=== PATIENT | male | born 1980 | race Caucasian/White ===

== ENCOUNTER 2016-07-07 17:58 | Emergency (ER) | payer OTHER, SELFPAY ==
[2016-07-07 19:27] VITALS: BP 126/94
--- NOTE | 2016-07-07 19:52 | Emergency Department Report ---
Chief Complaint: Abdominal Pain Stated Complaint: STOMACH PAIN Time Seen by Provider: 07/07/16 19:47 - HPI History of Present Illness: Patient here complaining of stomach pain that started 1 hour prior to coming to the emergency room. He said is located around his umbilical area. He said similar pain in the past. Patient said he drinks 1 pint of vodka per day consistently for the last 1-2 weeks. He reports nausea but denies any vomiting denies any diarrhea. He said the took antacid but it didn't help. She reports some urine burning. Denies any fever or chills. - ROS Review of Systems: Systems are negative unless stated in HPI above. - Exam Vital Signs: Vital Signs 07/07/16 19:05 Temperature 98.1 F Pulse Rate 88 Respiratory 20 Rate Blood Pressure 126/94 O2 Sat by Pulse 96 Oximetry Physical Exam: General: This is a 35-year-old male well-nourished well-developed in no acute distress. Abdomen: Soft, tenderness to periumbilical area without any guarding or rebound tenderness. Normal bowel sounds. CV: S1, S2. Regular rate and rhythm. MSE screening note: Focused history and physical exam performed. Due to findings the following was ordered:see [facility] ED Medical Decision Making - Medical Decision Making Medical decision making: Patient seen by provider in triage area. Appropriate protocol activated and patient to main ED to be seen by physician. ED Disposition for MSE Condition: Stable
[2016-07-07 20:58] LABS: Basophils % (Auto) 0.2 % (0.0-1.8); Eosinophils % (Auto) 1.7 % (0.0-4.3); Hematocrit 51.6 % (35.5-45.6); Hemoglobin 17.2 gm/dl (11.8-15.2); Mean Corpuscular HGB Conc 33 % (32-34); Mean Corpuscular Hemoglobin 31 pg (28-32); Mean Corpuscular Volume 93 fl (84-94); Platelet Count 286 K/mm3 (140-440); Red Blood Count 5.54 M/mm3 (3.65-5.03)
[2016-07-07 21:21] LABS: Alanine Aminotransferase 44 units/L (7-56); Albumin/Globulin Ratio 1.4 %; Alkaline Phosphatase 74 units/L (35-129); Anion Gap 22 mmol/L; Bilirubin,Direct 0.2 mg/dL (0-0.2); Bilirubin,Indirect 0.5 mg/dL; Bilirubin,Total 0.7 mg/dL (0.1-1.2); Blood Urea Nitrogen 12 mg/dL (9-20); Calcium 9.5 mg/dL (8.4-10.2); Carbon Dioxide 26 mmol/L (22-30); Chloride 100.4 mmol/L (98-107); Glucose 127 mg/dL (75-100); Lipase 208 units/L (13-60); Potassium 3.9 mmol/L (3.6-5.0); Sodium 144 mmol/L (137-145); Total Protein 8.6 g/dL (6.3-8.2)
[2016-07-07 22:08] LABS: Bacteria,Urine 2+ /HPF (Negative); Bilirubin,Urine NEG (Negative); Blood,Urine NEG (Negative); Ketones,Urine NEG (Negative); Leukocyte Esterase,Urine NEG (Negative); Mucus,Urine 3+ /HPF; Nitrite,Urine NEG (Negative); Sperm,Urine FEW /HPF (NP); Urobilinogen,Urine < 2.0 mg/dL (<2.0)
[2016-07-08] MEDS ORDERED: ATIVAN ONE (19:14)
== END 2016-07-07 23:20 | disposition left against medical advice (07) ==
LOC: ED 17:58
DX: R10.33 Periumbilical pain (principal); R11.0 Nausea; R30.0 Dysuria; Z53.21 Procedure and treatment not carried out due to patient leaving prior to being seen by health care provider
CPT/HCPCS: 36415; 80048; 80074; 81001; 82150; 83690; 85025; 87086; J2060

== ENCOUNTER 2016-07-08 05:30 | Inpatient (IN) | payer SELFPAY ==
[2016-07-08 09:08] LABS: Basophils % (Auto) 0.2 % (0.0-1.8); Eosinophils % (Auto) 1.3 % (0.0-4.3); Hematocrit 46.9 % (35.5-45.6); Hemoglobin 15.7 gm/dl (11.8-15.2); Mean Corpuscular HGB Conc 33 % (32-34); Mean Corpuscular Hemoglobin 31 pg (28-32); Mean Corpuscular Volume 92 fl (84-94); Platelet Count 255 K/mm3 (140-440); Red Blood Count 5.09 M/mm3 (3.65-5.03); Red Cell Distribution Width 13.7 % (13.2-15.2); White Blood Count 11.3 K/mm3 (4.5-11.0)
[2016-07-08 09:16] LABS: Alanine Aminotransferase 42 units/L (7-56); Albumin 4.4 g/dL (3.9-5); Albumin/Globulin Ratio 1.5 %; Alkaline Phosphatase 66 units/L (35-129); Anion Gap 21 mmol/L; BUN/Creatinine Ratio 18.57; Bilirubin,Total 0.6 mg/dL (0.1-1.2); Blood Urea Nitrogen 13 mg/dL (9-20); Calcium 8.9 mg/dL (8.4-10.2); Carbon Dioxide 25 mmol/L (22-30); Glucose 108 mg/dL (75-100); Lipase 198 units/L (13-60); Sodium 142 mmol/L (137-145); Total Protein 7.4 g/dL (6.3-8.2)
[2016-07-08 12:20] LABS: Bilirubin,Urine NEG (Negative); Blood,Urine NEG (Negative); Ketones,Urine TR mg/dL (Negative); Leukocyte Esterase,Urine NEG (Negative); Mucus,Urine FEW /HPF; Nitrite,Urine NEG (Negative)
[2016-07-08] MEDS ORDERED: VITAMIN B-1 IV ONE (13:50)
[2016-07-08] MEDS ORDERED: NACL 0.9% 1000 ML IV ONE (13:50)
[2016-07-08] MEDS ORDERED: ZOFRAN IV ONE ×2 (13:50→15:45)
[2016-07-08] MEDS ORDERED: MORPHINE IV ONE ×2 (13:52→15:45)
[2016-07-08] MEDS ORDERED: VITAMIN B-1 100 MG in NACL 0.9% 50 ML IV ONE (15:00)
--- NOTE | 2016-07-08 15:30 | Emergency Department Report ---
HPI - General Chief Complaint: Abdominal Pain Time Seen by Provider: 07/08/16 13:12 - HPI HPI: Chief complaint: Abdominal pain nausea and vomiting HPI: Patient drinks a pint of vodka every night and has had 2 episodes of alcoholic pancreatitis and was admitted here complains of several days of upper abdominal pain without nausea vomiting or diarrhea. Patient states that he is been drinking alcohol in the waiting room to try and damp and down his pain. Patient denies that he has a problem of alcohol and that he is currently intoxicated. Mode of arrival: private car Source: Patient old chart Began: Several days Duration: Continuous Context: See above Quality: Pain Severity: 10 out of 10 Improved with: Nothing Worsened with: Nothing Associated signs and symptoms: Denies nausea vomiting or diarrhea but patient is an extremely poor historian secondary to drinking alcohol. ED Past Medical Hx - Past Medical History Hx Congestive Heart Failure: No Hx Diabetes: Yes Hx GERD: Yes Hx Psychiatric Treatment: Yes (BIPOLAR) Hx Asthma: No Hx COPD: No Hx HIV: No - Social History Smoking Status: Unknown if ever smoked Substance Use Type: Non Opiate Pain, Prescribed - Medications Home Medications: Home Medications Medication Instructions Recorded Confirmed Last Taken Type Esomeprazole Magnesium [NexIUM] 40 mg PO QDAY 03/20/16 07/08/16 Unknown History ED Review of Systems ROS: Stated complaint: ABD PAIN Other details as noted in HPI ROS Constitutional: No fever ENT: No uri symptoms Cardiovascular: No chest pain Respiratory: No sob or cough GI: No nausea vomiting or diarrhea : No dysuria frequency or urgency, Skin: No rash Neuro: No focal weakness or numbness Psych: Alcohol dependence Dorian/lymph: No edema Physical Exam - Physical Exam Vital Signs: Vital Signs 07/08/16 07/08/16 07/08/16 06:01 06:03 11:42 Temperature 97.4 F L 97.9 F Pulse Rate 105 H 93 H Respiratory 18 20 18 Rate Blood Pressure 133/94 Blood Pressure 133/96 [Left] O2 Sat by Pulse 97 97 100 Oximetry 07/08/16 11:45 Temperature 97.9 F Pulse Rate 91 H Respiratory 18 Rate Blood Pressure Blood Pressure 134/94 [Left] O2 Sat by Pulse 100 Oximetry Physical Exam: GENERAL: The patient is well-developed well-nourished . HEENT: Normocephalic. Atraumatic. Extraocular motions are intact. Patient has moist mucous membranes. NECK: Supple. No meningitic signs are noted. There is no adenopathy noted. CHEST/LUNGS: Clear to auscultation. There is no respiratory distress noted. HEART/CARDIOVASCULAR: Regular. There is no tachycardia. There is no gallop rub or murmur. ABDOMEN: Abdomen is soft, mild epigastric tenderness without rebound or guarding. Patient has normal bowel sounds. There is no abdominal distention. SKIN: There is no rash. There is no edema. There is no diaphoresis. NEURO: The patient is awake, alert, and oriented. The patient is cooperative. The patient has no focal neurologic deficits. The patient has normal speech. MUSCULOSKELETAL: There is no tenderness or deformity. There is no limitation range of motion. There is no evidence of acute injury. ED Course Vital Signs 07/08/16 07/08/16 07/08/16 06:01 06:03 11:42 Temperature 97.4 F L 97.9 F Pulse Rate 105 H 93 H Respiratory 18 20 18 Rate Blood Pressure 133/94 Blood Pressure 133/96 [Left] O2 Sat by Pulse 97 97 100 Oximetry 07/08/16 11:45 Temperature 97.9 F Pulse Rate 91 H Respiratory 18 Rate Blood Pressure Blood Pressure 134/94 [Left] O2 Sat by Pulse 100 Oximetry - Reevaluation(s) Reevaluation #1: 07/08/16 Patient given a liter of normal saline and 4 mg of morphine and 4 mg Zofran with persistent pain. Will be admitted to the hospitalist. ED Medical Decision Making - Lab Data Result diagrams: 07/08/16 08:42 07/08/16 08:42 Laboratory Tests 07/07/16 07/07/16 07/07/16 20:28 20:28 21:30 AST 52 H Amylase 147 H Lipase 208 H Ur Specific [place] 1.030 Urine Protein 100 mg/dl Urine Ketones Plasma/Serum Alcohol 07/08/16 07/08/16 07/08/16 08:42 12:03 13:49 AST 52 H Amylase Lipase 198 H Ur Specific [place] 1.030 Urine Protein 30 mg/dl Urine Ketones Tr Plasma/Serum Alcohol 0.12 H Critical care attestation.: If time is entered above; I have spent that time in minutes in the direct care of this critically ill patient, excluding procedure time. ED Disposition Clinical Impression: ETOH abuse Acute pancreatitis Qualifiers: Pancreatitis type: alcohol induced Acute pancreatitis complication: unspecified Qualified Code(s): K85.20 - Alcohol induced acute pancreatitis without necrosis or infection Disposition: OP ADMITTED IP TO THIS HOSP Is pt being admited?: Yes Does the pt Need Aspirin: No Condition: Fair Time of Disposition: 16:05 (admit to the hospitalist)
--- NOTE | 2016-07-08 16:49 | History and Physical Report ---
History of Present Illness Date of examination: 07/08/16 Date of admission: 07/08/16 Chief complaint: Abdominal pain for 2 days History of present illness: is a 35-year-old man who presented to the emergency room complaining of upper abdominal pain radiates into the back. Had some nausea but no vomiting. Has a history of alcohol abuse. He's also had pancreatitis in the past. His last drink was last night. He was seen in the emergency room and started on IV fluids and IV narcotics however his pain persisted. Past History Past Medical History: other (pancreatitis) Past Surgical History: Other (left forearm for laceration) Social history: smoking, alcohol abuse, full code. denies: IV drug use Family history: hypertension Medications and Allergies Allergies Allergy/AdvReac Type Severity Reaction Status Date / Time lamotrigine [From Lamictal] AdvReac Rash Verified 03/25/15 07:32 Home Medications Medication Instructions Recorded Confirmed Last Taken Type Esomeprazole Magnesium [NexIUM] 40 mg PO QDAY 03/20/16 07/08/16 Unknown History Review of Systems All systems: negative Constitutional: no weight loss, no weight gain, no fever, no anorexia, no fatigue, no weakness Ears, nose, mouth and throat: no ear pain, no ear discharge, no tinnitis Cardiovascular: no chest pain, no orthopnea, no palpitations, no rapid/ irregular heart beat Respiratory: no cough, no cough with sputum, no excessive sputum, no hemoptysis Gastrointestinal: other (as in the history of presenting complaint) Genitourinary Male: no urinary frequency Rectal: no pain, no incontinence Musculoskeletal: no neck stiffness, no neck pain, no shooting arm pain Integumentary: no rash, no pruritis, no redness Neurological: no transient paralysis, no paralysis, no weakness Psychiatric: no anxiety, no memory loss, no change in sleep habits Endocrine: no cold intolerance, no heat intolerance, no polyphagia, no excessive thirst Hematologic/Lymphatic: no easy bruising, no easy bleeding Allergic/Immunologic: no urticaria, no allergic rhinitis Exam - Constitutional Vitals: Temp Pulse Resp BP Pulse Ox 97.9 F 91 H 18 134/94 100 07/08/16 11:45 07/08/16 11:45 07/08/16 15:47 07/08/16 11:45 07/08/16 11:45 General appearance: Present: no acute distress, well-nourished - EENT Eyes: Present: PERRL, EOM intact. Absent: scleral icterus, conjunctival injection ENT: hearing intact, clear oral mucosa, no oropharyngeal erythema, no poor dentition - Neck Neck: Present: supple, normal ROM. Absent: enlarged thyroid, masses or JVD - Respiratory Respiratory effort: normal Respiratory: negative: diminished, rales, rhonchi, wheezing - Cardiovascular Rhythm: regular Heart Sounds: Present: S1 & S2. Absent: gallop - Extremities Extremities: no ischemia, pulses intact, pulses symmetrical, No edema Peripheral Pulses: within normal limits - Abdominal General gastrointestinal: Present: soft, tender (epigastrium), non-distended, normal bowel sounds Male genitourinary: Present: deferred - Rectal Rectal Exam: deferred - Integumentary Integumentary: Present: clear - Musculoskeletal Musculoskeletal: strength equal bilaterally - Psychiatric Psychiatric: appropriate mood/affect, intact judgment & insight, cooperative - Neurologic Neurologic: CNII-XII intact, moves all extremities Results - Labs CBC & Chem 7: 07/08/16 08:42 07/08/16 08:42 Labs: Abnormal lab results 07/08/16 07/08/16 07/08/16 Range/Units 08:42 08:42 13:49 WBC 11.3 H (4.5-11.0) K/mm3 RBC 5.09 H (3.65-5.03) M/mm3 Hgb 15.7 H (11.8-15.2) gm/dl Hct 46.9 H (35.5-45.6) % [place] % (Auto) 8.0 H (0.0-7.3) % [place] # 0.9 H (0.0-0.8) K/mm3 Seg Neutrophils % 70.3 H (40.0-70.0) % Seg Neutrophils # 8.0 H (1.8-7.7) K/mm3 Creatinine 0.7 L (0.8-1.5) mg/dL Glucose 108 H (75-100) mg/dL AST 52 H (5-40) units/L Lipase 198 H (13-60) units/L Plasma/Serum Alcohol 0.12 H (0-0.07) gm% Assessment and Plan 1. Acute alcoholic pancreatitis-admit as an inpatient as more than 2 midnights are required for treatment. Will keep patient nothing by mouth except for ice chips. We'll start patient on banana bag. Monitor Accu-Cheks. Monitor lipase. IV morphine for pain 2. Alcohol abuse-CIWA protocol 3. Nicotine abuse-looking cessation counseling done, including the harmful effects of cigarette smoking and the options available to help to quit. Nicotine patch. 10 minutes spent counseling 4. DVT prophylaxis-Lovenox
[2016-07-08] MEDS ORDERED: TYLENOL PO PRN (17:25)
[2016-07-08] MEDS ORDERED: REGLAN IV PRN (17:25)
[2016-07-08] MEDS ORDERED: ZOFRAN IV PRN (17:25)
[2016-07-08 18:01] LABS: Magnesium 1.8 mg/dL (1.7-2.3); Phosphorous 3.2 mg/dL (2.5-4.5)
[2016-07-08] MEDS: ATIVAN IV PRN (19:13)
[2016-07-08] MEDS: 1: FOLVITE 1 MG, INFUVITE 10 ML, VITAMIN B-1 100 MG in NACL 0.9% 1000 ML 988.8 ML 2: NA IV SCH (21:38)
[2016-07-08] MEDS: PROTONIX IV SCH (21:54)
[2016-07-08] MEDS: HABITROL TD SCH (21:54)
[2016-07-08] MEDS ORDERED: NACL 0.9% 1000 ML 1,000 ML ONE (21:55)
--- NOTE | 2016-07-08 22:31 | Admit Criteria Form ---
Admission Criteria Documentation: PANCREATITIS Clinical Indications for Admission to Inpatient Care (Place 'X' for any and all applicable criteria): Admission is indicated for ANY ONE of the following (1)(2)(3)(4): [ ]I. Acute pancreatitis[A] as indicated by 2 or more of the following: [ ]a) Abdominal pain (eg, epigastric, left upper quadrant) [ ]b) Serum amylase or serum lipase greater than 3 times the upper limit of normal [ ]c) Characteristic findings from abdominal imaging (eg, pancreatic inflammation, pancreatic necrosis, peripancreatic fluid collection)[B] [X ]II. Pancreatitis (acute or chronic) requiring inpatient care as indicated by 1 or more of the following: [ X]a) Inability to maintain oral hydration Hypoxemia [ ]b) Evidence of infection (eg, fever, peripancreatic abscess) [X ]c) Severe pain requiring acute inpatient management [ ]d) Hemodynamic instability [ ]e) Hypoxemia [ ]f) Acute renal failure [ ]g) Severe electrolyte abnormalities Extended stay beyond goal length of stay may be needed for (1)(11) [ ]a) Severe acute pancreatitis (10)(19) [ ]b) Persistent symptoms, ascites, or pleural effusion [ ]c) Abdominal compartment syndrome (10) [ ]d) Late complications [ ]e) Acute renal failure (27) [ ]f) Gallstones in gallbladder The original [employer] content created by [employer] has been revised. The portions of the content which have been revised are identified through the use of italic text or in bold,and [facility] has neither reviewed nor approved the modified material.All other unmodified content is copyright [employer]. Please see references footnoted in the original [employer] edition 2016 Admission Criteria Met: Yes
[2016-07-09] MEDS: MORPHINE IV PRN ×5 (02:29→20:09)
[2016-07-09] MEDS: 1: FOLVITE 1 MG, INFUVITE 10 ML, VITAMIN B-1 100 MG in NACL 0.9% 1000 ML 988.8 ML 2: NA IV SCH (02:34)
[2016-07-09] MEDS: ATIVAN IV PRN ×5 (02:52→20:08)
[2016-07-09 09:10] LABS: Anion Gap 19 mmol/L; BUN/Creatinine Ratio 18.33; Blood Urea Nitrogen 11 mg/dL (9-20); Calcium 8.5 mg/dL (8.4-10.2); Carbon Dioxide 23 mmol/L (22-30); Chloride 97.2 mmol/L (98-107); Glucose 114 mg/dL (75-100); Potassium 3.3 mmol/L (3.6-5.0); Sodium 136 mmol/L (137-145)
[2016-07-09] MEDS: LOVENOX SUB-Q SCH (10:35)
[2016-07-09] MEDS: HABITROL TD SCH (10:35)
[2016-07-09] MEDS: PROTONIX IV SCH ×2 (10:35→22:00)
[2016-07-09] MEDS: KCL 10MEQ/100ML 100 ML IV SCH ×2 (11:30→12:33)
[2016-07-09] MEDS ORDERED: NACL 0.9% 1000 ML 1,000 ML IV SCH (13:00)
--- NOTE | 2016-07-09 15:40 | Progress Note ---
Assessment and Plan Assessment and plan: Acute alcoholi pancreatitis. Keep nothing by mouth. Continue IV fluids. Morphine when necessary for pain management. Alcohol abuse. Started on CIWA protocol. I discussed with him the importance of quitting alcohol. DVT prophylaxis with Heparin. Full CODE STATUS History Interval history: abdominal pain, Last drink - vodka about 18 hrs ago Hospitalist Physical - Physical exam Narrative exam: Gen appearance : Not in acute distress, HEENT: Normocephalic atraumatic Neck: supple, no JVD. Lungs: clear to auscultation bilaterally, no crackles no wheezes Heart: S1 and S2 regular, no murmurs, rubs or gallop Abdomen: soft, tender epigastric and paraumbilical areas,, nondistended normal bowel sounds Extremities: No edema, no clubbing or cyanosis Neuro : Awake alert oriented 3, no focal signs - Constitutional Vitals: Temp Pulse Resp BP Pulse Ox 98.2 F 79 18 143/86 99 07/09/16 08:00 07/09/16 08:00 07/09/16 08:00 07/09/16 08:00 07/09/16 08:00 General appearance: Present: no acute distress, well-nourished Results - Labs CBC & Chem 7: 07/08/16 08:42 07/09/16 07:49 Labs: Laboratory Last Values WBC 11.3 K/mm3 (4.5-11.0) H 07/08/16 08:42 RBC 5.09 M/mm3 (3.65-5.03) H 07/08/16 08:42 Hgb 15.7 gm/dl (11.8-15.2) H 07/08/16 08:42 Hct 46.9 % (35.5-45.6) H 07/08/16 08:42 MCV 92 fl (84-94) 07/08/16 08:42 MCH 31 pg (28-32) 07/08/16 08:42 MCHC 33 % (32-34) 07/08/16 08:42 RDW 13.7 % (13.2-15.2) 07/08/16 08:42 Plt Count 255 K/mm3 (140-440) 07/08/16 08:42 Lymph % (Auto) 20.2 % (13.4-35.0) 07/08/16 08:42 [place] % (Auto) 8.0 % (0.0-7.3) H 07/08/16 08:42 Eos % (Auto) 1.3 % (0.0-4.3) 07/08/16 08:42 Baso % (Auto) 0.2 % (0.0-1.8) 07/08/16 08:42 Lymph # 2.3 K/mm3 (1.2-5.4) 07/08/16 08:42 [place] # 0.9 K/mm3 (0.0-0.8) H 07/08/16 08:42 Eos # 0.2 K/mm3 (0.0-0.4) 07/08/16 08:42 Baso # 0.0 K/mm3 (0.0-0.1) 07/08/16 08:42 Seg Neutrophils % 70.3 % (40.0-70.0) H 07/08/16 08:42 Seg Neutrophils # 8.0 K/mm3 (1.8-7.7) H 07/08/16 08:42 Sodium 136 mmol/L (137-145) L 07/09/16 07:49 Potassium 3.3 mmol/L (3.6-5.0) L 07/09/16 07:49 Chloride 97.2 mmol/L (98-107) L 07/09/16 07:49 Carbon Dioxide 23 mmol/L (22-30) 07/09/16 07:49 Anion Gap 19 mmol/L 07/09/16 07:49 BUN 11 mg/dL (9-20) 07/09/16 07:49 Creatinine 0.6 mg/dL (0.8-1.5) L 07/09/16 07:49 Estimated GFR > 60 ml/min 07/09/16 07:49 BUN/Creatinine Ratio 18.33 % 07/09/16 07:49 Glucose 114 mg/dL (75-100) H 07/09/16 07:49 POC Glucose 97 (70-105) 07/09/16 12:30 Calcium 8.5 mg/dL (8.4-10.2) 07/09/16 07:49 Phosphorus 3.2 mg/dL (2.5-4.5) 07/08/16 17:32 Magnesium 1.8 mg/dL (1.7-2.3) 07/08/16 17:32 Total Bilirubin 0.6 mg/dL (0.1-1.2) 07/08/16 08:42 AST 52 units/L (5-40) H 07/08/16 08:42 ALT 42 units/L (7-56) 07/08/16 08:42 Alkaline Phosphatase 66 units/L (35-129) 07/08/16 08:42 Total Protein 7.4 g/dL (6.3-8.2) 07/08/16 08:42 Albumin 4.4 g/dL (3.9-5) 07/08/16 08:42 Albumin/Globulin Ratio 1.5 % 07/08/16 08:42 Lipase 1155 units/L (13-60) H 07/09/16 07:49 Urine Color Yellow (Yellow) 07/08/16 12:03 Urine Turbidity Clear (Clear) 07/08/16 12:03 Urine pH 6.0 (5.0-7.0) 07/08/16 12:03 Ur Specific [place] 1.030 (1.003-1.030) 07/08/16 12:03 Urine Protein 30 mg/dl mg/dL (Negative) 07/08/16 12:03 Urine Glucose (UA) Neg mg/dL (Negative) 07/08/16 12:03 Urine Ketones Tr mg/dL (Negative) 07/08/16 12:03 Urine Blood Neg (Negative) 07/08/16 12:03 Urine Nitrite Neg (Negative) 07/08/16 12:03 Urine Bilirubin Neg (Negative) 07/08/16 12:03 Urine Urobilinogen 2.0 mg/dL (<2.0) 07/08/16 12:03 Ur Leukocyte Esterase Neg (Negative) 07/08/16 12:03 Urine WBC (Auto) 1.0 /HPF (0.0-6.0) 07/08/16 12:03 Urine RBC (Auto) 1.0 /HPF (0.0-6.0) 07/08/16 12:03 Urine Mucus Few /HPF 07/08/16 12:03 Plasma/Serum Alcohol 0.12 gm% (0-0.07) H 07/08/16 13:49
[2016-07-09] MEDS: KCL 10 MEQ in D5NS 1,000 ML IV SCH (18:52)
[2016-07-10] MEDS: MORPHINE IV PRN ×4 (00:19→20:55)
[2016-07-10] MEDS: VITAMIN B-1 100 MG, FOLVITE 1 MG, INFUVITE 10 ML in NACL 0.9% 1000 ML 1,000 ML IV SCH ×2 (05:30→23:22)
[2016-07-10 07:38] LABS: Hematocrit 47.2 % (35.5-45.6); Mean Corpuscular HGB Conc 34 % (32-34); Mean Corpuscular Hemoglobin 31 pg (28-32); Mean Corpuscular Volume 92 fl (84-94); Platelet Count 194 K/mm3 (140-440); Red Blood Count 5.15 M/mm3 (3.65-5.03); Red Cell Distribution Width 13.5 % (13.2-15.2); White Blood Count 13.2 K/mm3 (4.5-11.0)
[2016-07-10 07:52] LABS: Anion Gap 16 mmol/L; Blood Urea Nitrogen 9 mg/dL (9-20); Calcium 8.3 mg/dL (8.4-10.2); Carbon Dioxide 25 mmol/L (22-30); Chloride 99.5 mmol/L (98-107); Glucose 109 mg/dL (75-100); Potassium 3.6 mmol/L (3.6-5.0); Sodium 137 mmol/L (137-145)
[2016-07-10 08:02] LABS: Lipase 620 units/L (13-60)
[2016-07-10] MEDS: ATIVAN IV PRN (11:30)
[2016-07-10] MEDS: PROTONIX IV SCH ×2 (11:30→22:41)
[2016-07-10] MEDS: LOVENOX SUB-Q SCH (11:35)
--- NOTE | 2016-07-10 12:14 | Progress Note ---
Assessment and Plan Assessment and plan: Acute alcoholi pancreatitis. Less abdominal pain. Lipase level improving. Was NPO. Start clear liquid diet. Continue IV fluids. Morphine when necessary for pain management. Alcohol abuse. Started on CIWA protocol. I discussed with him the importance of quitting alcohol. DVT prophylaxis with Heparin. Full CODE STATUS History Interval history: Less abdominal pain, nausea, no vomiting Last drink - vodka 2 days ago. Hospitalist Physical - Physical exam Narrative exam: Gen appearance : Not in acute distress, HEENT: Normocephalic atraumatic Neck: supple, no JVD. Lungs: clear to auscultation bilaterally, no crackles no wheezes Heart: S1 and S2 regular, no murmurs, rubs or gallop Abdomen: soft, tender epigastric and paraumbilical areas,, nondistended ,normal bowel sounds Extremities: No edema, no clubbing or cyanosis Neuro : Awake alert oriented 3, no focal signs - Constitutional Vitals: Temp Pulse Resp BP Pulse Ox 99.2 F 106 H 18 132/96 94 07/10/16 08:00 07/10/16 08:00 07/10/16 08:00 07/10/16 08:00 07/10/16 08:00 General appearance: Present: no acute distress, well-nourished Results - Labs CBC & Chem 7: 07/10/16 06:39 07/10/16 06:39 Labs: Laboratory Last Values WBC 13.2 K/mm3 (4.5-11.0) H 07/10/16 06:39 RBC 5.15 M/mm3 (3.65-5.03) H 07/10/16 06:39 Hgb 16.0 gm/dl (11.8-15.2) H 07/10/16 06:39 Hct 47.2 % (35.5-45.6) H 07/10/16 06:39 MCV 92 fl (84-94) 07/10/16 06:39 MCH 31 pg (28-32) 07/10/16 06:39 MCHC 34 % (32-34) 07/10/16 06:39 RDW 13.5 % (13.2-15.2) 07/10/16 06:39 Plt Count 194 K/mm3 (140-440) 07/10/16 06:39 Lymph % (Auto) 20.2 % (13.4-35.0) 07/08/16 08:42 [place] % (Auto) 8.0 % (0.0-7.3) H 07/08/16 08:42 Eos % (Auto) 1.3 % (0.0-4.3) 07/08/16 08:42 Baso % (Auto) 0.2 % (0.0-1.8) 07/08/16 08:42 Lymph # 2.3 K/mm3 (1.2-5.4) 07/08/16 08:42 [place] # 0.9 K/mm3 (0.0-0.8) H 07/08/16 08:42 Eos # 0.2 K/mm3 (0.0-0.4) 07/08/16 08:42 Baso # 0.0 K/mm3 (0.0-0.1) 07/08/16 08:42 Seg Neutrophils % 70.3 % (40.0-70.0) H 07/08/16 08:42 Seg Neutrophils # 8.0 K/mm3 (1.8-7.7) H 07/08/16 08:42 Sodium 137 mmol/L (137-145) 07/10/16 06:39 Potassium 3.3 mmol/L (3.6-5.0) L 07/09/16 07:49 Chloride 97.2 mmol/L (98-107) L 07/09/16 07:49 Carbon Dioxide 25 mmol/L (22-30) 07/10/16 06:39 Anion Gap 19 mmol/L 07/09/16 07:49 BUN 9 mg/dL (9-20) 07/10/16 06:39 Creatinine 0.6 mg/dL (0.8-1.5) L 07/10/16 06:39 Estimated GFR > 60 ml/min 07/10/16 06:39 BUN/Creatinine Ratio 15.00 % 07/10/16 06:39 Glucose 109 mg/dL (75-100) H 07/10/16 06:39 POC Glucose 113 (70-105) H 07/10/16 05:51 Calcium 8.3 mg/dL (8.4-10.2) L 07/10/16 06:39 Phosphorus 3.2 mg/dL (2.5-4.5) 07/08/16 17:32 Magnesium 1.8 mg/dL (1.7-2.3) 07/08/16 17:32 Total Bilirubin 0.6 mg/dL (0.1-1.2) 07/08/16 08:42 AST 52 units/L (5-40) H 07/08/16 08:42 ALT 42 units/L (7-56) 07/08/16 08:42 Alkaline Phosphatase 66 units/L (35-129) 07/08/16 08:42 Total Protein 7.4 g/dL (6.3-8.2) 07/08/16 08:42 Albumin 4.4 g/dL (3.9-5) 07/08/16 08:42 Albumin/Globulin Ratio 1.5 % 07/08/16 08:42 Lipase 620 units/L (13-60) H 07/10/16 06:39 Urine Color Yellow (Yellow) 07/08/16 12:03 Urine Turbidity Clear (Clear) 07/08/16 12:03 Urine pH 6.0 (5.0-7.0) 07/08/16 12:03 Ur Specific [place] 1.030 (1.003-1.030) 07/08/16 12:03 Urine Protein 30 mg/dl mg/dL (Negative) 07/08/16 12:03 Urine Glucose (UA) Neg mg/dL (Negative) 07/08/16 12:03 Urine Ketones Tr mg/dL (Negative) 07/08/16 12:03 Urine Blood Neg (Negative) 07/08/16 12:03 Urine Nitrite Neg (Negative) 07/08/16 12:03 Urine Bilirubin Neg (Negative) 07/08/16 12:03 Urine Urobilinogen 2.0 mg/dL (<2.0) 07/08/16 12:03 Ur Leukocyte Esterase Neg (Negative) 07/08/16 12:03 Urine WBC (Auto) 1.0 /HPF (0.0-6.0) 07/08/16 12:03 Urine RBC (Auto) 1.0 /HPF (0.0-6.0) 07/08/16 12:03 Urine Mucus Few /HPF 07/08/16 12:03 Plasma/Serum Alcohol 0.12 gm% (0-0.07) H 07/08/16 13:49
[2016-07-10] MEDS: HABITROL TD SCH (13:07)
[2016-07-10] MEDS: KCL 10 MEQ in D5NS 1,000 ML IV SCH (14:49)
[2016-07-11] MEDS: MORPHINE IV PRN ×3 (03:57→13:29)
[2016-07-11] MEDS: HABITROL TD SCH (08:59)
[2016-07-11] MEDS: LOVENOX SUB-Q SCH (08:59)
[2016-07-11] MEDS: PROTONIX IV SCH (09:00)
[2016-07-11] MEDS: KCL 10 MEQ in D5NS 1,000 ML IV SCH (09:01)
[2016-07-11 10:18] LABS: Hematocrit 41.3 % (35.5-45.6); Hemoglobin 13.8 gm/dl (11.8-15.2); Mean Corpuscular HGB Conc 33 % (32-34); Mean Corpuscular Hemoglobin 31 pg (28-32); Mean Corpuscular Volume 94 fl (84-94); Platelet Count 194 K/mm3 (140-440); Red Cell Distribution Width 13.9 % (13.2-15.2); White Blood Count 9.8 K/mm3 (4.5-11.0)
[2016-07-11 10:22] LABS: Anion Gap 16 mmol/L; Blood Urea Nitrogen 7 mg/dL (9-20); Calcium 8.3 mg/dL (8.4-10.2); Carbon Dioxide 24 mmol/L (22-30); Chloride 101.1 mmol/L (98-107); Glucose 103 mg/dL (75-100); Lipase 227 units/L (13-60); Potassium 3.5 mmol/L (3.6-5.0); Sodium 138 mmol/L (137-145)
--- NOTE | 2016-07-11 10:26 | Discharge Summary ---
Providers - Providers Date of Admission: 07/08/16 16:35 Date of discharge: 07/11/16 Attending physician: PRETTY FAUSTIN Primary care physician: IT DESKTOP SUPPORT TECHNICIAN Hospitalization Condition: Fair Hospital course: Patient is 35-year-old with history of alcohol abuse, previous pancreatitis. He presents with abdominal pain, nausea, vomiting. The Lipase level was elevated at 198. He was diagnosed with acute alcoholic pancreatitis, was started on IV fluids, IV narcotics and admitted for further management. He was initially nothing by mouth, pain improved and he was started on clear liquid diet this was advanced. He continued to improve and was subsequently discharged home on 07/11/2016. He was advised to avoid alcohol. Total time spent on discharge 33 minutes Disposition: DISCHARGED TO HOME OR SELFCARE - Discharge Diagnoses (1) Acute alcoholic pancreatitis Status: Acute Qualifiers: Acute pancreatitis complication: A (2) Alcohol abuse Status: Chronic Core Measure Documentation - Palliative Care Palliative Care/ Comfort Measures: Not Applicable - Core Measures Any of the following diagnoses?: none Exam - Constitutional Vitals: Temp Pulse Resp BP Pulse Ox 97.8 F 97 H 18 108/60 95 07/11/16 08:00 07/11/16 08:00 07/11/16 08:00 07/11/16 08:00 07/11/16 08:00 Plan Activity: no restrictions Diet: low fat, low cholesterol, other (Soft, low fat) Additional Instructions: 1.Follow up with PCP or [facility] in 1 week. 2.Avoid alcohol Follow up with: [facility] [Outside] - 7 Days PRIMARY CARE,MD [Primary Care Provider] - 3-5 Days Prescriptions: Folic Acid [Folvite] 1 mg PO DAILY #30 tablet Multivitamin Tab [Multiple Vitamin TAB (Theragran)] 1 each PO DAILY #30 tablet Promethazine [Phenergan TAB] 25 mg PO Q6HR PRN #20 tab PRN Reason: Nausea Thiamine [Vitamin B-1] 100 mg PO QDAY #30 tablet oxyCODONE /ACETAMINOPHEN [Percocet 5/325] 1 tab PO Q6HR PRN #20 tablet PRN Reason: Pain
[2016-07-11 17:33] VITALS: BP 126/74
[2016-07-12] MEDS ORDERED: FOLVITE PO SCH (10:00)
[2016-07-12] MEDS ORDERED: THERAGRAN Tab PO SCH (10:00)
[2016-07-12] MEDS ORDERED: PROTONIX PO SCH (10:00)
[2016-07-12] MEDS ORDERED: VITAMIN B-1 PO SCH (10:00)
== END 2016-07-11 19:30 | disposition home or self-care (01) | DRG 440 ==
LOC: ED 05:30 → 3A 16:35
PROVIDERS: ADMIT Hospitalist; ATTEND Internal Medicine
DX: K85.20 Alcohol induced acute pancreatitis without necrosis or infection (principal); F10.10 Alcohol abuse, uncomplicated; F17.210 Nicotine dependence, cigarettes, uncomplicated; K21.9 Gastro-esophageal reflux disease without esophagitis; E11.9 Type 2 diabetes mellitus without complications; Z88.8 Allergy status to other drugs, medicaments and biological substances; Z82.49 Family history of ischemic heart disease and other diseases of the circulatory system
CPT/HCPCS: 36415; 80048; 80053; 80320; 81001; 82962; 83690; 83735; 84100; 85025; 85027; 96374; 96375; 96376; 99406; C9113; G0480; J1650; J2060; J2270; J2405; J2765; J3411; J3480; J7030; J7042

== ENCOUNTER 2016-07-15 00:16 | Emergency (ER) | payer SELFPAY ==
[2016-07-15] MEDS ORDERED: NACL 0.9% 1000 ML 1,000 ML IV ONE (00:58)
[2016-07-15 01:51] LABS: Hematocrit 44.5 % (35.5-45.6); Hemoglobin 14.7 gm/dl (11.8-15.2); Mean Corpuscular HGB Conc 33 % (32-34); Mean Corpuscular Hemoglobin 31 pg (28-32); Mean Corpuscular Volume 95 fl (84-94); Platelet Count 343 K/mm3 (140-440); Red Blood Count 4.71 M/mm3 (3.65-5.03); Red Cell Distribution Width 14.6 % (13.2-15.2); White Blood Count 5.5 K/mm3 (4.5-11.0)
[2016-07-15 01:58] LABS: INR 0.97 (0.87-1.13)
[2016-07-15 01:59] LABS: Partial Thromboplastin Time 28.9 Sec. (24.2-36.6)
[2016-07-15 02:10] LABS: Alanine Aminotransferase 52 units/L (7-56); Albumin 4.3 g/dL (3.9-5); Albumin/Globulin Ratio 1.2 %; Alkaline Phosphatase 88 units/L (35-129); Bilirubin,Total 0.2 mg/dL (0.1-1.2); Blood Urea Nitrogen 9 mg/dL (9-20); Calcium 9.9 mg/dL (8.4-10.2); Carbon Dioxide 28 mmol/L (22-30); Chloride 100.1 mmol/L (98-107); Glucose 111 mg/dL (75-100); Lipase 287 units/L (13-60); Sodium 141 mmol/L (137-145); Total Protein 7.8 g/dL (6.3-8.2)
[2016-07-15 02:16] LABS: Anion Gap 18 mmol/L
[2016-07-15 05:59] LABS: Anisocytosis 1+; Basophils % (Manual) 0 % (0.0-1.8); Blastocytes % (Manual) 0 %
[2016-07-15 06:00] LABS: Diff Status Complete; Hypochromasia 1+
[2016-07-15 06:01] LABS: Platelet Estimate Consistent w Auto
--- NOTE | 2016-07-15 10:33 | Emergency Department Report ---
ED GI Bleed HPI - General Chief complaint: GI Bleed Stated complaint: ABD PAIN Time Seen by Provider: 07/15/16 09:57 Source: patient Mode of arrival: Ambulatory Limitations: No Limitations - History of Present Illness Initial comments: 35-year-old male presents to emergency department complaining of abdominal pain and blood in his stools. Patient was recently admitted and discharged from this facility for acute pancreatitis. He reports his pain has been present off approximate 4 days. He states he was discharged 2 days ago. Pain is improved since discharge and is continuing to improve. At this time he reports just mild discomfort. Patient states yesterday he began having dark stools. Patient reports 2 episodes of this, but his last bowel movement was normal. There are no other complaints. MD complaint: melena -: Gradual, days(s) (4) Location: epigastric Radiation: none Quality: dull Consistency: constant Improves with: medication Worsens with: none Context: alcohol abuse Associated Symptoms: denies other symptoms - Related Data Home Medications Medication Instructions Recorded Confirmed Last Taken Esomeprazole Magnesium [NexIUM] 40 mg PO QDAY 03/20/16 07/08/16 Unknown Previous Rx's Medication Instructions Recorded Last Taken Type Folic Acid [Folvite] 1 mg PO DAILY #30 tablet 07/11/16 Unknown Rx Multivitamin Tab [Multiple Vitamin 1 each PO DAILY #30 tablet 07/11/16 Unknown Rx TAB (Theragran)] Promethazine [Phenergan TAB] 25 mg PO Q6HR PRN #20 tab 07/11/16 Unknown Rx Thiamine [Vitamin B-1] 100 mg PO QDAY #30 tablet 07/11/16 Unknown Rx oxyCODONE /ACETAMINOPHEN [Percocet 1 tab PO Q6HR PRN #20 tablet 07/11/16 Unknown Rx 5/325] HYDROcodone/APAP 5-325 [Cowen 1 each PO Q6HR PRN #20 tablet 07/15/16 Unknown Rx 5/325] Sucralfate [Carafate] 1 gm PO Q6HR #30 tablet 07/15/16 Unknown Rx Allergies Allergy/AdvReac Type Severity Reaction Status Date / Time lamotrigine [From Lamictal] AdvReac Rash Verified 03/25/15 07:32 ED Review of Systems ROS: Stated complaint: ABD PAIN Other details as noted in HPI Comment: All other systems reviewed and negative Gastrointestinal: abdominal pain, melena ED Past Medical Hx - Past Medical History Previous Medical History?: Yes Hx Congestive Heart Failure: No Hx Diabetes: Yes Hx GERD: Yes Hx Psychiatric Treatment: Yes (BIPOLAR) Hx Asthma: No Hx COPD: No Hx HIV: No - Surgical History Past Surgical History?: Yes Additional Surgical History: left forearm - Family History Family history: no significant - Social History Smoking Status: Current Every Day Smoker Substance Use Type: Alcohol - Medications Home Medications: Home Medications Medication Instructions Recorded Confirmed Last Taken Type Esomeprazole Magnesium [NexIUM] 40 mg PO QDAY 03/20/16 07/08/16 Unknown History Folic Acid [Folvite] 1 mg PO DAILY #30 tablet 07/11/16 Unknown Rx Multivitamin Tab [Multiple Vitamin 1 each PO DAILY #30 tablet 07/11/16 Unknown Rx TAB (Theragran)] Promethazine [Phenergan TAB] 25 mg PO Q6HR PRN #20 tab 07/11/16 Unknown Rx Thiamine [Vitamin B-1] 100 mg PO QDAY #30 tablet 07/11/16 Unknown Rx oxyCODONE /ACETAMINOPHEN [Percocet 1 tab PO Q6HR PRN #20 tablet 07/11/16 Unknown Rx 5/325] HYDROcodone/APAP 5-325 [Cowen 1 each PO Q6HR PRN #20 tablet 07/15/16 Unknown Rx 5/325] Sucralfate [Carafate] 1 gm PO Q6HR #30 tablet 07/15/16 Unknown Rx ED Physical Exam - General Limitations: No Limitations General appearance: alert, in no apparent distress - Head Head exam: Present: atraumatic, normocephalic - Eye Eye exam: Present: normal appearance, PERRL, EOMI - ENT ENT exam: Present: normal exam, normal orophraynx, mucous membranes moist - Neck Neck exam: Present: normal inspection, full ROM. Absent: tenderness - Respiratory Respiratory exam: Present: normal lung sounds bilaterally. Absent: respiratory distress - Cardiovascular Cardiovascular Exam: Present: regular rate, normal rhythm, normal heart sounds - GI/Abdominal GI/Abdominal exam: Present: soft, tenderness (mild epigastric tenderness to palpation), normal bowel sounds. Absent: distended, guarding, rebound - Extremities Exam Extremities exam: Present: normal inspection, full ROM. Absent: tenderness - Back Exam Back exam: Present: normal inspection, full ROM. Absent: tenderness - Neurological Exam Neurological exam: Present: alert, oriented X3. Absent: motor sensory deficit - Skin Skin exam: Present: warm, dry, intact ED Course Vital Signs 07/15/16 00:54 Temperature 98.6 F Pulse Rate 87 Respiratory 19 Rate Blood Pressure 128/89 O2 Sat by Pulse 98 Oximetry ED Medical Decision Making - Lab Data Result diagrams: 07/15/16 01:34 07/15/16 01:34 - EKG Data -: EKG Interpreted by Me EKG shows normal: sinus rhythm, axis, intervals, QRS complexes, ST-T waves Rate: normal - EKG Data When compared to previous EKG there are: previous EKG unavailable Interpretation: normal EKG - Medical Decision Making Lab results reviewed and discussed with the patient. Vital signs and hemoglobin are stable. Due to the patient's history of gastroesophageal reflux as well as alcohol abuse, the patient may have peptic ulcer disease versus alcoholic gastritis. Patient will be discharged home at this time with G[facility]nesis for Kevin to follow up with GI. - Differential Diagnosis GI bleed, peptic ulcer disease, alcoholic gastritis Critical care attestation.: If time is entered above; I have spent that time in minutes in the direct care of this critically ill patient, excluding procedure time. ED Disposition Clinical Impression: Alcoholic gastritis with hemorrhage Qualifiers: Chronicity: acute Qualified Code(s): K29.21 - Alcoholic gastritis with bleeding Disposition: DISCHARGED TO HOME OR SELFCARE Is pt being admited?: No Condition: Stable Prescriptions: Sucralfate [Carafate] 1 gm PO Q6HR #30 tablet HYDROcodone/APAP 5-325 [Cowen 5/325] 1 each PO Q6HR PRN #20 tablet PRN Reason: Pain Referrals: MARCO LEDESMA MD [Primary Care Provider] - 3-5 Days LARISSA HERNANDEZ MD [Staff Physician] - 3-5 Days Forms: Accompanied Note Time of Disposition: 10:35
[2016-07-15] MEDS ORDERED: NORCO 5/325 PO ONE (10:51)
[2016-07-15 11:28] VITALS: BP 134/85
== END 2016-07-15 11:15 | disposition home or self-care (01) ==
LOC: ED 00:16
DX: K29.21 Alcoholic gastritis with bleeding (principal); E11.9 Type 2 diabetes mellitus without complications; K21.9 Gastro-esophageal reflux disease without esophagitis; F31.9 Bipolar disorder, unspecified; F17.200 Nicotine dependence, unspecified, uncomplicated; Z88.8 Allergy status to other drugs, medicaments and biological substances
CPT/HCPCS: 36415; 80053; 83690; 85007; 85025; 85610; 85730; 93005; 93010

== ENCOUNTER 2016-10-21 06:38 | Inpatient (IN) | payer OTHER, SELFPAY ==
[2016-10-21 07:23] LABS: Basophils % (Auto) 0.2 % (0.0-1.8); Eosinophils % (Auto) 0.3 % (0.0-4.3); Hematocrit 51.1 % (35.5-45.6); Hemoglobin 16.4 gm/dl (11.8-15.2); Mean Corpuscular HGB Conc 32 % (32-34); Mean Corpuscular Hemoglobin 30 pg (28-32); Mean Corpuscular Volume 94 fl (84-94); Platelet Count 281 K/mm3 (140-440); Red Blood Count 5.46 M/mm3 (3.65-5.03); Red Cell Distribution Width 13.3 % (13.2-15.2); White Blood Count 15.8 K/mm3 (4.5-11.0)
[2016-10-21 07:38] LABS: Alanine Aminotransferase 50 units/L (7-56); Albumin 4.7 g/dL (3.9-5); Albumin/Globulin Ratio 1.6 %; Alkaline Phosphatase 83 units/L (35-129); Anion Gap 33 mmol/L; Blood Urea Nitrogen 12 mg/dL (9-20); Calcium 9.4 mg/dL (8.4-10.2); Carbon Dioxide 18 mmol/L (22-30); Chloride 95.3 mmol/L (98-107); Glucose 160 mg/dL (75-100); Potassium 3.3 mmol/L (3.6-5.0); Sodium 143 mmol/L (137-145); Total Protein 7.7 g/dL (6.3-8.2)
[2016-10-21 07:58] LABS: Bacteria,Urine 1+ /HPF (Negative); Bilirubin,Urine NEG (Negative); Blood,Urine NEG (Negative); Ketones,Urine 20 mg/dL (Negative); Leukocyte Esterase,Urine NEG (Negative); Mucus,Urine 3+ /HPF; Nitrite,Urine NEG (Negative); Urobilinogen,Urine < 2.0 mg/dL (<2.0)
[2016-10-21 08:00] LABS: Lipase 665 units/L (13-60)
[2016-10-21] MEDS ORDERED: ZOFRAN ONE (08:38)
[2016-10-21] MEDS ORDERED: ZOFRAN IV ONE (08:50)
[2016-10-21] MEDS ORDERED: K-DUR PO ONE (09:30)
[2016-10-21] MEDS ORDERED: NACL 0.9% 1000 ML 1,000 ML IV ONE (09:34)
[2016-10-21] MEDS ORDERED: DILAUDID IV ONE (09:34)
--- NOTE | 2016-10-21 09:42 | Emergency Department Report ---
ED Abdominal Pain HPI - General Chief Complaint: Abdominal Pain Stated Complaint: ABD PAIN Time Seen by Provider: 10/21/16 08:58 Source: patient, family, EMS, old records reviewed (06/2016 admission for acute pancreatitis. Last abd/pelvis ct on 03/20/16 showing acute pancreatitis) Mode of arrival: Ambulatory Limitations: No Limitations - History of Present Illness Initial Comments: 35-year-old male with a past medical history of alcohol and is pancreatitis, bipolar, alcohol abuse, and peptic ulcer disease presents to the hospital complaints of sudden onset acute epigastric pain with associated nausea vomiting. Symptoms started approximately 30 minutes prior to arrival last night. Pain is constant, cramping, fluctuate in intensity, is rated moderate to severe in intensity. Positive associated vomiting and by mouth intolerance. Last bowel movement was 2 days ago. Patient denies melena, hematochezia, diarrhea, hematemesis, previous abdominal surgeries, or fever. Last alcohol drink was 2 days ago. Patient has a history of alcohol withdrawal tremors but denies history of alcohol withdrawal seizures. Denies feeling tremulous at this time. Severity scale (0 -10): 9 - Related Data Home Medications Medication Instructions Recorded Confirmed Last Taken No Known Home Medications [No 10/21/16 10/21/16 Unknown Reported Home Medications] Allergies Allergy/AdvReac Type Severity Reaction Status Date / Time lamotrigine [From Lamictal] AdvReac Rash Verified 03/25/15 07:32 ED Review of Systems ROS: Stated complaint: ABD PAIN Other details as noted in HPI Comment: All other systems reviewed and negative Other: Constitutional: No fevers chills Eyes: No eye pain visual changes ENT: No ear pain or throat pain Neck: Denies pain Respiratory: Denies cough wheezing shortness of breath Cardiovascular: Denies chest pain, palpitations, syncope GI: As per HPI : Denies dysuria Musculoskeletal: Denies back pain Skin: Denies rash, lesions, erythema Neurologic: Denies headache Psychiatric: Denies suicidal ideation, hallucinations ED Past Medical Hx - Past Medical History Previous Medical History?: Yes Hx Congestive Heart Failure: No Hx Diabetes: No Hx GERD: Yes Hx Psychiatric Treatment: Yes (BIPOLAR) Hx Asthma: No Hx COPD: No Hx HIV: No Additional medical history: Peptic Ulcer? Pancreatitis. Alcohol Gastritis - Surgical History Past Surgical History?: Yes Additional Surgical History: left forearm - Social History Smoking Status: Current Every Day Smoker Substance Use Type: Alcohol - Medications Home Medications: Home Medications Medication Instructions Recorded Confirmed Last Taken Type No Known Home Medications [No 10/21/16 10/21/16 Unknown History Reported Home Medications] ED Physical Exam - General Limitations: No Limitations - Other Other exam information: General: NO acute distress. Although uncomfortable secondary to pain Head exam: Atraumatic, normocephalic Eyes exam: Normal appearance, nonicteric sclerae ENT: Moist mucous membrane, normal oropharynx Neck exam: Normal inspection, full range of motion Respiratory exam: Clear to auscultation bilateral, no wheezes, rales, crackles Cardiovascular: Normal rate and rhythm, normal heart sounds Abdomen: Soft, nondistended, mild right lower quadrant abdominal pain. Maximum epigastric tenderness. Normal bowel sounds. No rebound or guarding Extremity: Full range of motion normal inspection no deformity Back: Normal Inspection, full range of motion, no tenderness Neurologic: Alert, oriented x3, cranial nerves intact, no motor or sensory deficit Psychiatric: normal affect, normal mood Skin: Warm, dry, intact ED Course Vital Signs 10/21/16 10/21/16 10/21/16 06:42 08:51 08:52 Temperature 97.4 F L 97.6 F Pulse Rate 64 79 Respiratory 16 20 18 Rate Blood Pressure 113/59 124/79 [Right] O2 Sat by Pulse 100 99 Oximetry - Reevaluation(s) Reevaluation #1: 10/21/16 09:45 pt received Zofran 8 mg IV prior to my evaluation. Other meds ordered banana bag, normal saline, Po potassium, and Dilaudid. Urine collection pending ED Medical Decision Making - Lab Data Result diagrams: 10/21/16 06:43 10/21/16 06:43 Lab Results 10/21/16 10/21/16 10/21/16 Range/Units 01:34 06:43 06:43 WBC 15.8 H (4.5-11.0) K/mm3 RBC 5.46 H (3.65-5.03) M/mm3 Hgb 16.4 H (11.8-15.2) gm/dl Hct 51.1 H (35.5-45.6) % MCV 94 (84-94) fl MCH 30 (28-32) pg MCHC 32 (32-34) % RDW 13.3 (13.2-15.2) % Plt Count 281 (140-440) K/mm3 Lymph % (Auto) 23.6 (13.4-35.0) % Waller % (Auto) 4.5 (0.0-7.3) % Eos % (Auto) 0.3 (0.0-4.3) % Baso % (Auto) 0.2 (0.0-1.8) % Lymph # 3.7 (1.2-5.4) K/mm3 Waller # 0.7 (0.0-0.8) K/mm3 Eos # 0.1 (0.0-0.4) K/mm3 Baso # 0.0 (0.0-0.1) K/mm3 Seg Neutrophils % 71.4 H (40.0-70.0) % Seg Neutrophils # 11.3 H (1.8-7.7) K/mm3 Sodium 143 (137-145) mmol/L Potassium 3.3 L (3.6-5.0) mmol/L Chloride 95.3 L (98-107) mmol/L Carbon Dioxide 18 L (22-30) mmol/L Anion Gap 33 mmol/L BUN 12 (9-20) mg/dL Creatinine 0.8 (0.8-1.5) mg/dL Estimated GFR > 60 ml/min BUN/Creatinine Ratio 15.00 % Glucose 160 H (75-100) mg/dL Calcium 9.4 (8.4-10.2) mg/dL Magnesium 2.10 (1.7-2.3) mg/dL Total Bilirubin 0.70 (0.1-1.2) mg/dL AST 42 H (5-40) units/L ALT 50 (7-56) units/L Alkaline Phosphatase 83 (35-129) units/L Total Protein 7.7 (6.3-8.2) g/dL Albumin 4.7 (3.9-5) g/dL Albumin/Globulin Ratio 1.6 % Lipase 665 H (13-60) units/L Urine Color (Yellow) Urine Turbidity (Clear) Urine pH (5.0-7.0) Ur Specific Lawrence (1.003-1.030) Urine Protein (Negative) mg/dL Urine Glucose (UA) (Negative) mg/dL Urine Ketones (Negative) mg/dL Urine Blood (Negative) Urine Nitrite (Negative) Urine Bilirubin (Negative) Urine Urobilinogen (<2.0) mg/dL Ur Leukocyte Esterase (Negative) Urine WBC (Auto) (0.0-6.0) /HPF Urine RBC (Auto) (0.0-6.0) /HPF U Epithel Cells (Auto) (0-13.0) /HPF Urine Bacteria (Auto) (Negative) /HPF Urine Mucus /HPF 10/21/16 Range/Units 07:15 WBC (4.5-11.0) K/mm3 RBC (3.65-5.03) M/mm3 Hgb (11.8-15.2) gm/dl Hct (35.5-45.6) % MCV (84-94) fl MCH (28-32) pg MCHC (32-34) % RDW (13.2-15.2) % Plt Count (140-440) K/mm3 Lymph % (Auto) (13.4-35.0) % Waller % (Auto) (0.0-7.3) % Eos % (Auto) (0.0-4.3) % Baso % (Auto) (0.0-1.8) % Lymph # (1.2-5.4) K/mm3 Waller # (0.0-0.8) K/mm3 Eos # (0.0-0.4) K/mm3 Baso # (0.0-0.1) K/mm3 Seg Neutrophils % (40.0-70.0) % Seg Neutrophils # (1.8-7.7) K/mm3 Sodium (137-145) mmol/L Potassium (3.6-5.0) mmol/L Chloride (98-107) mmol/L Carbon Dioxide (22-30) mmol/L Anion Gap mmol/L BUN (9-20) mg/dL Creatinine (0.8-1.5) mg/dL Estimated GFR ml/min BUN/Creatinine Ratio % Glucose (75-100) mg/dL Calcium (8.4-10.2) mg/dL Magnesium (1.7-2.3) mg/dL Total Bilirubin (0.1-1.2) mg/dL AST (5-40) units/L ALT (7-56) units/L Alkaline Phosphatase (35-129) units/L Total Protein (6.3-8.2) g/dL Albumin (3.9-5) g/dL Albumin/Globulin Ratio % Lipase (13-60) units/L Urine Color Hilaria (Yellow) Urine Turbidity Slightly-cloudy (Clear) Urine pH 6.0 (5.0-7.0) Ur Specific Lawrence 1.027 (1.003-1.030) Urine Protein 100 mg/dl (Negative) mg/dL Urine Glucose (UA) 150 (Negative) mg/dL Urine Ketones 20 (Negative) mg/dL Urine Blood Neg (Negative) Urine Nitrite Neg (Negative) Urine Bilirubin Neg (Negative) Urine Urobilinogen < 2.0 (<2.0) mg/dL Ur Leukocyte Esterase Neg (Negative) Urine WBC (Auto) 4.0 (0.0-6.0) /HPF Urine RBC (Auto) 3.0 (0.0-6.0) /HPF U Epithel Cells (Auto) < 1.0 (0-13.0) /HPF Urine Bacteria (Auto) 1+ (Negative) /HPF Urine Mucus 3+ /HPF - Medical Decision Making Patient be admitted to the hospital for flare of acute on chronic alcoholic pancreatitis. Labs show elevated lipase. UA and blood alcohol level pending at disposition however, patient states last drink was several days ago. Bicarbonate 18 anion gap of 33 likely secondary to dehydration and ketosis. Urine pending to confirm ketosis in alcohol pending to rule out concurrent alcohol intoxication as the cause - Differential Diagnosis pancreatitis, gastritis, cholecystitis Critical Care Time: No Critical care attestation.: If time is entered above; I have spent that time in minutes in the direct care of this critically ill patient, excluding procedure time. ED Disposition Clinical Impression: Acute alcoholic pancreatitis, Alcohol abuse Disposition: OP ADMITTED IP TO THIS HOSP Is pt being admited?: Yes Condition: Stable Time of Disposition: 09:41 (Dr paz/hosp)
[2016-10-21] MEDS ORDERED: VITAMIN B-1 100 MG, FOLVITE 1 MG, INFUVITE 10 ML in NACL 0.9% 1000 ML 1,000 ML IV ONE ×2 (10:00→10:21)
--- NOTE | 2016-10-21 10:04 | History and Physical Report ---
History of Present Illness Date of examination: 10/21/16 Date of admission: 10/21/16 Chief complaint: abdominal pain/nausea and vomiting for the last 2 days History of present illness: 35-year-old male patient with significant past medical history of chronic alcohol use with multiple admissions for recurrent alcohol-induced pancreatitis Presented to the emergency room with acute abdominal epigastric pain associated with nausea vomiting and diaphoresis Patient denies any fever, grates is abdominal pain between 6-7/10, associated with nausea vomiting Patient also complains of generalized weakness and dizziness Denies hematemesis or melena Denies chest pain or shortness of breath Initial workup is consistent with acute pancreatitis with lipase of 665 and metabolic acidosis with bicarbonate of 18 Patient also had mild hypokalemia Patient reports that he takes alcohol for sleep Past History Past Medical History: other (pancreatitis) Past Surgical History: Other (forearm injury) Social history: lives with family, smoking, alcohol abuse, full code. denies: IV drug use Family history: hypertension Medications and Allergies Allergies Allergy/AdvReac Type Severity Reaction Status Date / Time lamotrigine [From Lamictal] AdvReac Rash Verified 03/25/15 07:32 Home Medications Medication Instructions Recorded Confirmed Last Taken Type No Known Home Medications [No 10/21/16 10/21/16 Unknown History Reported Home Medications] Active Meds: Active Medications Thiamine HCl 100 mg/ Folic Acid 1 mg/ Multivitamins/Minerals 10 ml/ Sodium Chloride 1,011.2 mls @ 250 mls/hr IV ONCE.ED ONE Stop: 10/21/16 14:02 Sodium Chloride (Nacl 0.9% 1000 Ml) 1,000 mls @ 999 mls/hr IV BOLUS ONE Stop: 10/21/16 10:34 Review of Systems Constitutional: anorexia, fatigue, no weight loss, no weight gain, no fever, no chills Ears, nose, mouth and throat: no nasal congestion, no nasal discharge Cardiovascular: no chest pain, no orthopnea, no palpitations Respiratory: no cough with sputum, no shortness of breath Gastrointestinal: abdominal pain, nausea, vomiting Genitourinary Male: no dysuria, no hematuria Musculoskeletal: no myalgias, no arthritis Integumentary: no rash, no lesions Neurological: no weakness, no parathesias, no numbness, no seizures Psychiatric: no anxiety, no depression Endocrine: no cold intolerance, no heat intolerance, no polydipsia, no polyuria Hematologic/Lymphatic: no easy bruising, no easy bleeding Allergic/Immunologic: no urticaria, no allergic rhinitis Exam - Constitutional Vitals: Temp Pulse Resp BP Pulse Ox 97.6 F 79 18 124/79 100 10/21/16 08:52 10/21/16 08:52 10/21/16 08:52 10/21/16 08:52 10/21/16 08:52 General appearance: Present: mild distress, cachectic - EENT Eyes: Present: PERRL, EOM intact - Neck Neck: Present: supple, normal ROM - Respiratory Respiratory effort: normal Respiratory: bilateral: diminished, negative: rales, rhonchi, wheezing - Cardiovascular Rhythm: regular Heart Sounds: Present: S1 & S2 - Extremities Extremities: no ischemia, pulses intact, pulses symmetrical Peripheral Pulses: within normal limits - Abdominal General gastrointestinal: Present: soft, tender, non-distended, normal bowel sounds - Integumentary Integumentary: Present: clear, warm - Musculoskeletal Musculoskeletal: strength equal bilaterally - Psychiatric Psychiatric: appropriate mood/affect, cooperative - Neurologic Neurologic: CNII-XII intact, moves all extremities Results - Labs CBC & Chem 7: 10/21/16 06:43 10/21/16 06:43 Labs: Abnormal lab results 10/21/16 10/21/16 Range/Units 06:43 06:43 WBC 15.8 H (4.5-11.0) K/mm3 RBC 5.46 H (3.65-5.03) M/mm3 Hgb 16.4 H (11.8-15.2) gm/dl Hct 51.1 H (35.5-45.6) % Seg Neutrophils % 71.4 H (40.0-70.0) % Seg Neutrophils # 11.3 H (1.8-7.7) K/mm3 Potassium 3.3 L (3.6-5.0) mmol/L Chloride 95.3 L (98-107) mmol/L Carbon Dioxide 18 L (22-30) mmol/L Glucose 160 H (75-100) mg/dL AST 42 H (5-40) units/L Lipase 665 H (13-60) units/L Assessment and Plan --Acute alcoholic pancreatitis Nothing by mouth status, IV fluids, IV pain medications Supportive care, ice chips --Chronic alcohol use Closely monitor for alcohol withdrawal symptoms, initiate CIWA protocol Thiamin , folic acid and IV fluids And advised alcohol rehabilitation, to attend a supportive group upon discharge --Ongoing tobacco use Smoking cessation counseling done patient advised to quit tobacco use Advised nicotine patch Risks and consequences and complications of ongoing tobacco use discussed with the patient's Verbalized understanding, spent 8 minutes counseling --Hypokalemia Replace per protocol and monitor levels --Leukocytosis Rule out sepsis, empiric antibiotics with Rocephin Cultures --Metabolic acidosis Reduce IV fluids closely monitor --DVT prophylaxis with Lovenox Closely monitor the patient and adjust the management as needed Patient's condition treatment plan discussed in detail with the patient, father at the bedside ER physician and the nurse Disposition, admit to medical floor Possible discharge in 1-2 days if stable
[2016-10-21] MEDS ORDERED: ATIVAN IV PRN (10:05)
[2016-10-21] MEDS ORDERED: AMBIEN PO PRN (10:05)
[2016-10-21] MEDS ORDERED: NACL 0.9% 1000 ML 1,000 ML IV SCH (11:00)
--- NOTE | 2016-10-21 14:06 | Admit Criteria Form ---
Admission Criteria Met: Yes
[2016-10-21] MEDS ORDERED: 1: FOLVITE 1 MG, INFUVITE 10 ML, VITAMIN B-1 100 MG in NACL 0.9% 1000 ML 988.8 ML 2: NA IV SCH (14:30)
--- NOTE | 2016-10-21 15:54 | Admit Criteria Form ---
Admission Criteria Documentation: PANCREATITIS Clinical Indications for Admission to Inpatient Care (Place 'X' for any and all applicable criteria): Admission is indicated for 1 or more of the following (1)(2)(3)(4): [ X]I. Acute pancreatitis[A] as indicated by 2 or MORE of the following: [ X]a) Abdominal pain (eg, epigastric, left upper quadrant) [ X]b) Serum amylase or serum lipase greater than 3 times the upper limit of normal [ ]c) Characteristic findings from abdominal imaging (eg, pancreatic inflammation, pancreatic necrosis, peripancreatic fluid collection)[B] [ ]II. Pancreatitis (acute or chronic ) requiring inpatient care as indicated by 1 or more of the following [ ]a) Inability to maintain oral hydration Hypoxemia [ ]b) Evidence of infection (eg, fever, peripancreatic abscess) [ ]c) Severe pain requiring acute inpatient management [ ]d) Hemodynamic instability [ ]e) Hypoxemia [ ]f) Acute renal failure [ ]g) Severe electrolyte abnormalities Extended stay beyond goal length of stay may be needed for (1)(11) [ ]a) Severe acute pancreatitis (10)(19) [ ]b) Persistent symptoms, ascites, or pleural effusion [ ]c) Abdominal compartment syndrome (10) [ ]d) Late complications [ ]e) Gallstones in gallbladder [ ]f) Acute renal failure (27) The original [employer] content created by [employer] has been revised. The portions of the content which have been revised are identified through the use of italic text or in bold,and [facility] has neither reviewed nor approved the modified material.All other unmodified content is copyright [employer] Please see references footnoted in the original [employer] edition 2016 Admission Criteria Met: Yes
[2016-10-21] MEDS: DILAUDID IV PRN ×2 (16:39→20:18)
[2016-10-21] MEDS: NACL 0.9% 1000 ML 1,000 ML IV SCH (20:19)
[2016-10-22] MEDS: DILAUDID IV PRN ×5 (00:32→22:23)
[2016-10-22] MEDS: ZOFRAN IV PRN ×2 (01:30→16:08)
[2016-10-22 05:09] LABS: Basophils % (Auto) 0.1 % (0.0-1.8); Hemoglobin 15.2 gm/dl (11.8-15.2); Mean Corpuscular HGB Conc 33 % (32-34); Mean Corpuscular Hemoglobin 31 pg (28-32); Mean Corpuscular Volume 93 fl (84-94); Platelet Count 206 K/mm3 (140-440); Red Blood Count 4.96 M/mm3 (3.65-5.03); Red Cell Distribution Width 13.4 % (13.2-15.2); White Blood Count 15.8 K/mm3 (4.5-11.0)
[2016-10-22 05:30] LABS: Alanine Aminotransferase 33 units/L (7-56); Albumin/Globulin Ratio 1.5 %; Alkaline Phosphatase 66 units/L (35-129); Bilirubin,Direct 0.3 mg/dL (0-0.2); Blood Urea Nitrogen 12 mg/dL (9-20); Calcium 9.2 mg/dL (8.4-10.2); Carbon Dioxide 27 mmol/L (22-30); Chloride 102.3 mmol/L (98-107); Glucose 113 mg/dL (75-100); Potassium 3.9 mmol/L (3.6-5.0); Sodium 142 mmol/L (137-145); Total Protein 6.7 g/dL (6.3-8.2)
[2016-10-22 05:42] LABS: Anion Gap 17 mmol/L; Lipase 541 units/L (13-60)
[2016-10-22] MEDS ORDERED: PROTONIX IV SCH (10:00)
[2016-10-22] MEDS ORDERED: PERCOCET 5/325 PO PRN (10:20)
--- NOTE | 2016-10-22 10:21 | Progress Note ---
Assessment and Plan Assessment and plan: --Acute alcoholic pancreatitis Mild improvement of lipase and symptoms Start clear liquids continue IV fluids, IV pain medications --Chronic alcohol use Continue CIWA protocol, IV fluids, thiamine and folic acid, Counseling done patient strongly advised to quit alcohol intake, I recommend alcohol rehabilitation and [facility] support group --Ongoing tobacco use Smoking cessation counseling done patient advised to quit tobacco use, Advised nicotine patch --Hypokalemia; resolved --Leukocytosis Rule out sepsis, empiric antibiotics with Rocephin,Cultures --Metabolic acidosis, significantly improved continue IV fluids closely monitor --DVT prophylaxis with Lovenox Closely monitor the patient and adjust the management as needed Patient's condition treatment plan discussed in detail with the patient, father at the bedside As well as the nurse Disposition possible discharge in 1-2 days if stable Hospitalist Physical - Constitutional Vitals: Temp Pulse Resp BP Pulse Ox 99.9 F H 54 L 15 133/88 99 10/22/16 07:50 10/22/16 07:50 10/22/16 07:50 10/22/16 07:50 10/22/16 07:50 General appearance: Present: no acute distress, cachectic - EENT Eyes: Present: PERRL, EOM intact - Neck Neck: Present: supple, normal ROM - Respiratory Respiratory effort: normal Respiratory: bilateral: diminished, negative: rales, rhonchi, wheezing - Cardiovascular Rhythm: regular Heart Sounds: Present: S1 & S2 - Extremities Extremities: no ischemia, pulses intact, pulses symmetrical Peripheral Pulses: within normal limits - Abdominal General gastrointestinal: soft, non-tender, non-distended, normal bowel sounds - Integumentary Integumentary: Present: clear, warm - Psychiatric Psychiatric: appropriate mood/affect, cooperative - Neurologic Neurologic: CNII-XII intact, moves all extremities Results - Labs CBC & Chem 7: 10/22/16 04:37 10/22/16 04:37 Labs: Laboratory Last Values WBC 15.8 K/mm3 (4.5-11.0) H 10/22/16 04:37 RBC 4.96 M/mm3 (3.65-5.03) 10/22/16 04:37 Hgb 15.2 gm/dl (11.8-15.2) 10/22/16 04:37 Hct 46.0 % (35.5-45.6) H 10/22/16 04:37 MCV 93 fl (84-94) 10/22/16 04:37 MCH 31 pg (28-32) 10/22/16 04:37 MCHC 33 % (32-34) 10/22/16 04:37 RDW 13.4 % (13.2-15.2) 10/22/16 04:37 Plt Count 206 K/mm3 (140-440) 10/22/16 04:37 Lymph % (Auto) 8.5 % (13.4-35.0) L 10/22/16 04:37 [place] % (Auto) 6.4 % (0.0-7.3) 10/22/16 04:37 Eos % (Auto) 0.0 % (0.0-4.3) 10/22/16 04:37 Baso % (Auto) 0.1 % (0.0-1.8) 10/22/16 04:37 Lymph # 1.3 K/mm3 (1.2-5.4) 10/22/16 04:37 [place] # 1.0 K/mm3 (0.0-0.8) H 10/22/16 04:37 Eos # 0.0 K/mm3 (0.0-0.4) 10/22/16 04:37 Baso # 0.0 K/mm3 (0.0-0.1) 10/22/16 04:37 Seg Neutrophils % 85.0 % (40.0-70.0) H 10/22/16 04:37 Seg Neutrophils # 13.5 K/mm3 (1.8-7.7) H 10/22/16 04:37 Sodium 142 mmol/L (137-145) 10/22/16 04:37 Potassium 3.9 mmol/L (3.6-5.0) 10/22/16 04:37 Chloride 102.3 mmol/L (98-107) 10/22/16 04:37 Carbon Dioxide 27 mmol/L (22-30) D 10/22/16 04:37 Anion Gap 17 mmol/L 10/22/16 04:37 BUN 12 mg/dL (9-20) 10/22/16 04:37 Creatinine 0.6 mg/dL (0.8-1.5) L 10/22/16 04:37 Estimated GFR > 60 ml/min 10/22/16 04:37 BUN/Creatinine Ratio 20.00 % 10/22/16 04:37 Glucose 113 mg/dL (75-100) H 10/22/16 04:37 Calcium 9.2 mg/dL (8.4-10.2) 10/22/16 04:37 Magnesium 2.10 mg/dL (1.7-2.3) 10/21/16 01:34 Total Bilirubin 1.30 mg/dL (0.1-1.2) H 10/22/16 04:37 Direct Bilirubin 0.3 mg/dL (0-0.2) H 10/22/16 04:37 Indirect Bilirubin 1.0 mg/dL 10/22/16 04:37 AST 28 units/L (5-40) 10/22/16 04:37 ALT 33 units/L (7-56) 10/22/16 04:37 Alkaline Phosphatase 66 units/L (35-129) 10/22/16 04:37 Total Protein 6.7 g/dL (6.3-8.2) 10/22/16 04:37 Albumin 4.0 g/dL (3.9-5) 10/22/16 04:37 Albumin/Globulin Ratio 1.5 % 10/22/16 04:37 Lipase 541 units/L (13-60) H 10/22/16 04:37 Urine Color Hilaria (Yellow) 10/21/16 07:15 Urine Turbidity Slightly-cloudy (Clear) 10/21/16 07:15 Urine pH 6.0 (5.0-7.0) 10/21/16 07:15 Ur Specific [place] 1.027 (1.003-1.030) 10/21/16 07:15 Urine Protein 100 mg/dl mg/dL (Negative) 10/21/16 07:15 Urine Glucose (UA) 150 mg/dL (Negative) 10/21/16 07:15 Urine Ketones 20 mg/dL (Negative) 10/21/16 07:15 Urine Blood Neg (Negative) 10/21/16 07:15 Urine Nitrite Neg (Negative) 10/21/16 07:15 Urine Bilirubin Neg (Negative) 10/21/16 07:15 Urine Urobilinogen < 2.0 mg/dL (<2.0) 10/21/16 07:15 Ur Leukocyte Esterase Neg (Negative) 10/21/16 07:15 Urine WBC (Auto) 4.0 /HPF (0.0-6.0) 10/21/16 07:15 Urine RBC (Auto) 3.0 /HPF (0.0-6.0) 10/21/16 07:15 U Epithel Cells (Auto) < 1.0 /HPF (0-13.0) 10/21/16 07:15 Urine Bacteria (Auto) 1+ /HPF (Negative) 10/21/16 07:15 Urine Mucus 3+ /HPF 10/21/16 07:15 Plasma/Serum Alcohol < 0.01 gm% (0-0.07) 10/21/16 09:08
[2016-10-22] MEDS: INFUVITE IV SCH ×2 (12:15→17:25)
[2016-10-22] MEDS: VITAMIN B1 IV SCH ×2 (12:15→17:25)
[2016-10-22] MEDS: FOLVITE IV SCH ×2 (12:15→17:25)
[2016-10-22] MEDS: NACL 0.9% IV SCH ×2 (12:15→17:25)
[2016-10-22] MEDS: HABITROL TD SCH (12:16)
[2016-10-22] MEDS: NACL 0.9% 1000 ML 1,000 ML IV SCH (16:10)
[2016-10-22] MEDS ORDERED: ATIVAN IV PRN ×2 (22:03)
[2016-10-22 23:11] LABS: Alanine Aminotransferase 24 units/L (7-56); Albumin 3.6 g/dL (3.9-5); Albumin/Globulin Ratio 1.4 %; Alkaline Phosphatase 58 units/L (35-129); Anion Gap 14 mmol/L; Blood Urea Nitrogen 6 mg/dL (9-20); Calcium 8.6 mg/dL (8.4-10.2); Carbon Dioxide 27 mmol/L (22-30); Chloride 96.4 mmol/L (98-107); Glucose 122 mg/dL (75-100); Potassium 3.4 mmol/L (3.6-5.0); Total Protein 6.1 g/dL (6.3-8.2)
[2016-10-22 23:43] LABS: Bilirubin,Direct 0.4 mg/dL (0-0.2); Bilirubin,Indirect 0.7 mg/dL
[2016-10-22 23:51] LABS: Sodium 134 mmol/L (137-145)
[2016-10-23] MEDS: DILAUDID IV PRN ×2 (03:19→14:18)
[2016-10-23] MEDS: ZOFRAN IV PRN (03:20)
[2016-10-23] MEDS: NACL 0.9% 1000 ML 1,000 ML IV SCH (03:40)
[2016-10-23] MEDS ORDERED: K-DUR PO ONE (09:00)
[2016-10-23] MEDS: HABITROL TD SCH (09:07)
--- NOTE | 2016-10-23 09:31 | Progress Note ---
Hospitalist Physical - Constitutional Vitals: Temp Pulse Resp BP Pulse Ox 98.1 F 86 20 141/83 99 10/23/16 07:00 10/23/16 07:00 10/23/16 07:00 10/23/16 07:00 10/23/16 07:00 General appearance: Present: no acute distress, cachectic Results - Labs CBC & Chem 7: 10/22/16 04:37 10/22/16 22:30 Labs: Laboratory Last Values WBC 15.8 K/mm3 (4.5-11.0) H 10/22/16 04:37 RBC 4.96 M/mm3 (3.65-5.03) 10/22/16 04:37 Hgb 15.2 gm/dl (11.8-15.2) 10/22/16 04:37 Hct 46.0 % (35.5-45.6) H 10/22/16 04:37 MCV 93 fl (84-94) 10/22/16 04:37 MCH 31 pg (28-32) 10/22/16 04:37 MCHC 33 % (32-34) 10/22/16 04:37 RDW 13.4 % (13.2-15.2) 10/22/16 04:37 Plt Count 206 K/mm3 (140-440) 10/22/16 04:37 Lymph % (Auto) 8.5 % (13.4-35.0) L 10/22/16 04:37 [place] % (Auto) 6.4 % (0.0-7.3) 10/22/16 04:37 Eos % (Auto) 0.0 % (0.0-4.3) 10/22/16 04:37 Baso % (Auto) 0.1 % (0.0-1.8) 10/22/16 04:37 Lymph # 1.3 K/mm3 (1.2-5.4) 10/22/16 04:37 [place] # 1.0 K/mm3 (0.0-0.8) H 10/22/16 04:37 Eos # 0.0 K/mm3 (0.0-0.4) 10/22/16 04:37 Baso # 0.0 K/mm3 (0.0-0.1) 10/22/16 04:37 Seg Neutrophils % 85.0 % (40.0-70.0) H 10/22/16 04:37 Seg Neutrophils # 13.5 K/mm3 (1.8-7.7) H 10/22/16 04:37 Sodium 134 mmol/L (137-145) L D 10/22/16 22:30 Potassium 3.4 mmol/L (3.6-5.0) L 10/22/16 22:30 Chloride 96.4 mmol/L (98-107) L 10/22/16 22:30 Carbon Dioxide 27 mmol/L (22-30) 10/22/16 22:30 Anion Gap 14 mmol/L 10/22/16 22:30 BUN 6 mg/dL (9-20) L 10/22/16 22:30 Creatinine 0.5 mg/dL (0.8-1.5) L 10/22/16 22:30 Estimated GFR > 60 ml/min 10/22/16 22:30 BUN/Creatinine Ratio 12.00 % 10/22/16 22:30 Glucose 122 mg/dL (75-100) H 10/22/16 22:30 Calcium 8.6 mg/dL (8.4-10.2) 10/22/16 22:30 Phosphorus 1.60 mg/dL (2.5-4.5) L 10/22/16 22:30 Magnesium 1.90 mg/dL (1.7-2.3) 10/22/16 22:30 Total Bilirubin 1.10 mg/dL (0.1-1.2) 10/22/16 22:30 Direct Bilirubin 0.4 mg/dL (0-0.2) H 10/22/16 22:30 Indirect Bilirubin 0.7 mg/dL 10/22/16 22:30 AST 21 units/L (5-40) 10/22/16 22:30 ALT 24 units/L (7-56) 10/22/16 22:30 Alkaline Phosphatase 58 units/L (35-129) 10/22/16 22:30 Total Protein 6.1 g/dL (6.3-8.2) L 10/22/16 22:30 Albumin 3.6 g/dL (3.9-5) L 10/22/16 22:30 Albumin/Globulin Ratio 1.4 % 10/22/16 22:30 Lipase 541 units/L (13-60) H 10/22/16 04:37 Urine Color Hilaria (Yellow) 10/21/16 07:15 Urine Turbidity Slightly-cloudy (Clear) 10/21/16 07:15 Urine pH 6.0 (5.0-7.0) 10/21/16 07:15 Ur Specific [place] 1.027 (1.003-1.030) 10/21/16 07:15 Urine Protein 100 mg/dl mg/dL (Negative) 10/21/16 07:15 Urine Glucose (UA) 150 mg/dL (Negative) 10/21/16 07:15 Urine Ketones 20 mg/dL (Negative) 10/21/16 07:15 Urine Blood Neg (Negative) 10/21/16 07:15 Urine Nitrite Neg (Negative) 10/21/16 07:15 Urine Bilirubin Neg (Negative) 10/21/16 07:15 Urine Urobilinogen < 2.0 mg/dL (<2.0) 10/21/16 07:15 Ur Leukocyte Esterase Neg (Negative) 10/21/16 07:15 Urine WBC (Auto) 4.0 /HPF (0.0-6.0) 10/21/16 07:15 Urine RBC (Auto) 3.0 /HPF (0.0-6.0) 10/21/16 07:15 U Epithel Cells (Auto) < 1.0 /HPF (0-13.0) 10/21/16 07:15 Urine Bacteria (Auto) 1+ /HPF (Negative) 10/21/16 07:15 Urine Mucus 3+ /HPF 10/21/16 07:15 Plasma/Serum Alcohol < 0.01 gm% (0-0.07) 10/21/16 09:08
[2016-10-23] MEDS ORDERED: KPHOS 40 MMOL in NACL 0.9% 500 ML 500 ML IV ONE (10:00)
[2016-10-23] MEDS ORDERED: VITAMIN B-1 PO SCH (10:00)
[2016-10-23] MEDS ORDERED: PROTONIX PO SCH (10:00)
[2016-10-23] MEDS ORDERED: FOLVITE PO SCH (10:00)
--- NOTE | 2016-10-23 10:37 | Discharge Summary ---
Providers - Providers Date of Admission: 10/21/16 10:04 Date of discharge: 10/23/16 Attending physician: MICHELLE MORAN Primary care physician: S[employer]IOR [employer] Hospitalization Reason for admission: intractable abdominal pain and nausea vomiting/acute pancreatitis Condition: Stable Hospital course: 35-year-old male patient with significant past medical history of chronic alcohol use recurrent episodes of alcohol-induced pancreatitis ongoing tobacco use was admitted through emergency room with abdominal pain intractable nausea vomiting of 2 days' duration Initial workup is consistent with acute pancreatitis admitted to the hospital Symptomatically managed with intravenous IV hydration and pain medications, started on nothing by mouth and gradually started clear liquids advanced to full liquids today Patient's multiple electrolyte imbalances were corrected Lipase levels significantly improved Today he is comfortable in bed with the minimal abdominal pain no nausea vomiting tolerating full liquid diet No evidence of alcohol withdrawal symptoms Patient was placed on CIWA protocol Vital signs are stable [id number] evaluation physical examination done by me prior to discharge is unremarkable Counseled the patient advised to quit alcohol use Advised to receive rehabilitation Advised to attend [facility] supportive group Smoking cessation counseling done I spent 10 minutes counseling the patient Final diagnosis; acute alcohol-induced pancreatitis Intractable nausea vomiting secondary to above Hypokalemia Hypomagnesemia Hypophosphatemia Metabolic acidosis all corrected Chronic alcohol use Ongoing tobacco use Disposition: DISCHARGED TO HOME OR SELFCARE Time spent for discharge: 32 min Core Measure Documentation - Palliative Care Palliative Care/ Comfort Measures: Not Applicable - Core Measures Any of the following diagnoses?: none Exam - Constitutional Vitals: Temp Pulse Resp BP Pulse Ox 98.1 F 86 20 141/83 99 10/23/16 07:00 10/23/16 07:00 10/23/16 07:00 10/23/16 07:00 10/23/16 07:00 General appearance: Present: no acute distress, well-nourished - EENT Eyes: Present: PERRL, EOM intact - Neck Neck: Present: supple, normal ROM - Respiratory Respiratory effort: normal Respiratory: negative: rales, rhonchi, wheezing - Cardiovascular Rhythm: regular Heart Sounds: Present: S1 & S2 - Extremities Extremities: no ischemia, pulses intact, pulses symmetrical Peripheral Pulses: within normal limits - Abdominal General gastrointestinal: Present: soft, non-tender, non-distended, normal bowel sounds - Integumentary Integumentary: Present: clear, warm - Musculoskeletal Musculoskeletal: strength equal bilaterally - Psychiatric Psychiatric: appropriate mood/affect, cooperative - Neurologic Neurologic: CNII-XII intact, moves all extremities Plan Activity: advance as tolerated, fall precautions, other (do not drive or operate heavy machinery under influence of alcohol) Diet: regular Special Instructions: smoking cessation, other (quit alcohol intake) Additional Instructions: Strongly advised to quit alcohol intake. Recommend alcohol rehabilitation as needed. Advised to attend [facility] supportive group. Acute cessation counseling done advised to quit tobacco use Follow up with: PRIMARY CARE, [Primary Care Provider] - 3-5 Days Prescriptions: Famotidine/Ca Carb/Mag Hydrox [Pepcid Complete Tablet Chew] 1 each PO DAILY #30 tab.chew Folic Acid [Folvite] 1 mg PO QDAY #30 tablet Nicotine [Habitrol] 14 mg TD QDAY #30 patch oxyCODONE /ACETAMINOPHEN [Percocet 5/325 mg] 1 tab PO QHS PRN #10 tablet PRN Reason: Pain, Moderate (4-6) Pot Phosphate/Na Phosphate [Phos-Nak] 1 each PO BID #10 powd.pack Thiamine [Vitamin B-1] 100 mg PO QDAY #30 tablet
[2016-10-23 17:32] VITALS: BP 143/79
[2016-10-24] MEDS ORDERED: PROTONIX PO SCH (10:00)
== END 2016-10-23 21:20 | disposition home or self-care (01) | DRG 439 ==
LOC: ED 06:38 → 3A 10:04
PROVIDERS: ADMIT Internal Medicine; ATTEND Internal Medicine
DX: K85.20 Alcohol induced acute pancreatitis without necrosis or infection (principal); E87.2 Acidosis; F17.210 Nicotine dependence, cigarettes, uncomplicated; E87.6 Hypokalemia; E83.42 Hypomagnesemia; E83.39 Other disorders of phosphorus metabolism; F10.20 Alcohol dependence, uncomplicated; K21.9 Gastro-esophageal reflux disease without esophagitis; F31.9 Bipolar disorder, unspecified; R11.2 Nausea with vomiting, unspecified; D72.829 Elevated white blood cell count, unspecified; Z71.6 Tobacco abuse counseling; Z71.41 Alcohol abuse counseling and surveillance of alcoholic; Z88.8 Allergy status to other drugs, medicaments and biological substances; Z82.49 Family history of ischemic heart disease and other diseases of the circulatory system
CPT/HCPCS: 36415; 80048; 80053; 80074; 80320; 81001; 83690; 83735; 84100; 85025; 96374; 96375; 99406; C9113; G0480; J1170; J2060; J2405; J3246; J3411; J7030; J7040

== ENCOUNTER 2017-06-15 08:59 | Emergency (ER) | payer OTHER ==
[2017-06-15] MEDS ORDERED: ASPIRIN PO ONE (09:19)
[2017-06-15 09:58] LABS: Basophils % (Auto) 0.5 % (0.0-1.8); Eosinophils % (Auto) 0.2 % (0.0-4.3); Hematocrit 46.4 % (35.5-45.6); Hemoglobin 15.6 gm/dl (11.8-15.2); Lymphocytes # (Auto) 1.3 K/mm3 (1.2-5.4); Lymphocytes % (Auto) 15.4 % (13.4-35.0); Mean Corpuscular HGB Conc 34 % (32-34); Mean Corpuscular Hemoglobin 32 pg (28-32); Mean Corpuscular Volume 95 fl (84-94); Monocytes % (Auto) 11.7 % (0.0-7.3); Platelet Count 285 K/mm3 (140-440); Red Blood Count 4.92 M/mm3 (3.65-5.03); Red Cell Distribution Width 14.1 % (13.2-15.2)
[2017-06-15 10:08] LABS: BUN/Creatinine Ratio 16; Blood Urea Nitrogen 13 mg/dL (9-20); Calcium 10.7 mg/dL (8.4-10.2); Hemolysis Index 17
[2017-06-16] MEDS ORDERED: ZOFRAN IV ONE (03:10)
[2017-06-16] MEDS ORDERED: NACL 0.9% 1000 ML 1,000 ML IV ONE (03:11)
[2017-06-16] MEDS ORDERED: LIDOCAINE VISCOUS 2% PO ONE (03:18)
[2017-06-16] MEDS ORDERED: ALUM-MAG HYDROX-SIMETH 200-200-20MG/5ML PO ONE (03:19)
[2017-06-16 03:59] LABS: Bacteria,Urine 1+ /HPF (Negative); Bilirubin,Urine MOD (Negative); Blood,Urine NEG (Negative); Color,Urine Amber (Yellow); Mucus,Urine 3+ /HPF; Nitrite,Urine NEG (Negative)
[2017-06-16 04:01] LABS: Bilirubin,Direct 0.3 mg/dL (0-0.2)
[2017-06-16 04:03] LABS: Ictotest,Urine Positive (Negative)
--- NOTE | 2017-06-16 04:05 | Emergency Department Report ---
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 N/V 10 EPIDOSES AFTER DRINKING HIS DAILY 500ML OF ALCOHOL. PT STATES THT HE DRINKS TO [place] BLE TO SLEEP HIS LAST DRINKING BINGE WAS 2 DAYS AGO WHEN ALL HIS SYMPTOMS BEGAN. HE DESCRIBES THE CHEST PAIN BURNING SENSATION. THOUGH HE HAS BEEN VOMITING , HE HAS HAD NO DIARRHEA BUT LOTS OF BURPING. HE HAS NOT VOMITED ANY BLOOD AND HAS HAD THIS SAME SYMPTOMS IN THE PAST WITH RECURRENT DRINKING MD Complaint: chest pain -: days(s) (2) Onset: during rest Pain Location: substernal Pain Radiation: none Severity: moderate Severity scale (0 -10): 4 Quality: other (BURNING) Consistency: constant Improves With: nothing Context: other (HEAVY DRINKING) re: nausea, vomting Other Symptoms: cough Treatments Prior to Arrival: none - Related Data Previous Rx's Medication Instructions Recorded Last Taken Type Nicotine [Habitrol] 14 mg TD QDAY #30 patch 10/23/16 Unknown Rx Pot Phosphate/Na Phosphate 1 each PO BID #10 powd.pack 10/23/16 Unknown Rx [Phos-Nak] oxyCODONE /ACETAMINOPHEN [Percocet 1 tab PO QHS PRN #10 tablet 10/23/16 Unknown Rx 5/325 mg] Famotidine/Ca Carb/Mag Hydrox 1 each PO DAILY #30 tab.chew 06/16/17 Unknown Rx [Pepcid Complete Tablet Chew] Folic Acid [Folvite] 1 mg PO QDAY #30 tablet 06/16/17 Unknown Rx Nitrofurantoin [place]/M-Cryst 100 mg PO Q12HR #14 capsule 06/16/17 Unknown Rx [Macrobid CAP] Thiamine [Vitamin B-1] 100 mg PO QDAY #30 tablet 06/16/17 Unknown Rx Allergies Allergy/AdvReac Type Severity Reaction Status Date / Time lamotrigine [From Lamictal] AdvReac Rash Verified 03/25/15 07:32 Heart Score - HEART Score History: Slightly suspicious EKG: Normal Age: < 45 Risk factors: No known risk factors Troponin: < normal limit HEART Score: 0 ED Review of Systems ROS: Stated complaint: CP / HEART RACING Other details as noted in HPI Constitutional: denies: chills, fever Eyes: denies: eye pain, eye discharge, vision change ENT: denies: ear pain, throat pain Respiratory: denies: cough, shortness of breath, wheezing Cardiovascular: denies: chest pain, palpitations Endocrine: no symptoms reported Gastrointestinal: nausea, vomiting. denies: abdominal pain, diarrhea, hematemesis, melena, hematochezia Genitourinary: denies: urgency, dysuria Musculoskeletal: denies: back pain, joint swelling, arthralgia Skin: denies: rash, lesions Neurological: denies: headache, weakness, paresthesias Psychiatric: denies: anxiety, depression Hematological/Lymphatic: denies: easy bleeding, easy bruising ED Past Medical Hx - Past Medical History Previous Medical History?: Yes Hx Congestive Heart Failure: No Hx Diabetes: No Hx GERD: Yes Hx Psychiatric Treatment: Yes (BIPOLAR) Hx Asthma: No Hx COPD: No Hx HIV: No Additional medical history: Peptic Ulcer? Pancreatitis. Alcohol Gastritis - Surgical History Additional Surgical History: left forearm - Social History Smoking Status: Current Every Day Smoker Substance Use Type: Alcohol - Medications Home Medications: Home Medications Medication Instructions Recorded Confirmed Last Taken Type Nicotine [Habitrol] 14 mg TD QDAY #30 patch 10/23/16 Unknown Rx Pot Phosphate/Na Phosphate 1 each PO BID #10 powd.pack 10/23/16 Unknown Rx [Phos-Nak] oxyCODONE /ACETAMINOPHEN [Percocet 1 tab PO QHS PRN #10 tablet 10/23/16 Unknown Rx 5/325 mg] Famotidine/Ca Carb/Mag Hydrox 1 each PO DAILY #30 tab.chew 06/16/17 Unknown Rx [Pepcid Complete Tablet Chew] Folic Acid [Folvite] 1 mg PO QDAY #30 tablet 06/16/17 Unknown Rx Nitrofurantoin [place]/M-Cryst 100 mg PO Q12HR #14 capsule 06/16/17 Unknown Rx [Macrobid CAP] Thiamine [Vitamin B-1] 100 mg PO QDAY #30 tablet 06/16/17 Unknown Rx ED Physical Exam - General Limitations: No Limitations General appearance: alert, in no apparent distress - Head Head exam: Present: atraumatic, normocephalic - Eye Eye exam: Present: normal appearance, EOMI - ENT ENT exam: Present: mucous membranes moist - Neck Neck exam: Present: normal inspection, full ROM - Respiratory Respiratory exam: Present: normal lung sounds bilaterally. Absent: respiratory distress, wheezes, rales - Cardiovascular Cardiovascular Exam: Present: regular rate, normal rhythm. Absent: systolic murmur, diastolic murmur, rubs, gallop - GI/Abdominal GI/Abdominal exam: Present: soft, normal bowel sounds. Absent: distended, tenderness - Rectal Rectal exam: Present: deferred - Extremities Exam Extremities exam: Present: normal inspection, full ROM - Back Exam Back exam: Present: normal inspection, full ROM - Neurological Exam Neurological exam: Present: alert, oriented X3, CN II-XII intact - Psychiatric Psychiatric exam: Present: normal affect, normal mood - Skin Skin exam: Present: warm, dry, intact, normal color. Absent: rash ED Course Vital Signs 06/15/17 06/16/17 06/16/17 09:12 00:38 00:39 Temperature 98.8 F 98.6 F Pulse Rate 97 H 66 Respiratory 18 16 16 Rate Blood Pressure 126/93 Blood Pressure 130/98 [Left] O2 Sat by Pulse 97 96 96 Oximetry DINORAH score - Dinorah Score Age > 65: (0) No Aspirin use within the Past 7 Days: (0) No 3 or more CAD Risk Factors: (0) No 2 or more Angina events in past 24 hrs: (0) No Known CAD with more than 50% Stenosis: (0) No Elevated Cardiac Markers: (0) No ST Deviation Greater than 0.5mm: (0) No DINORAH Score: 0 ED Medical Decision Making - Lab Data Result diagrams: 06/15/17 09:22 06/15/17 09:22 - EKG Data -: EKG Interpreted by Me EKG shows normal: sinus rhythm, axis, intervals, QRS complexes, ST-T waves Rate: normal (83) - EKG Data When compared to previous EKG there are: no significant change (EKG #2:NS RATE 84, NO CHANGES) - Radiology Data Radiology results: report reviewed (ACUTE ABD SERIES:NEGATIVE) - Medical Decision Making GIVEN THE H/O ALCOHOL USE AND LOW DINORAH AND HEART SCORE , I FEEL HE CAN BE D/C WITH HIS DOCTOR FOLLOWING UP. HE HAD 3 NEGATIVE TROPONINS AND 3 NEGATIVEEKGS, SO THIS DOES NOT SEEM CARDIAC BUT LRELATED TO HIS DRINKING. VITALS ARE NORMAL AND HE DID NOT VOMIT BLOOD THUS NO ESOPHAGEAL TEARS SUSPECTED Critical care attestation.: If time is entered above; I have spent that time in minutes in the direct care of this critically ill patient, excluding procedure time. ED Disposition Clinical Impression: Methamphetamine abuse Chest pain Qualifiers: Chest pain type: unspecified Qualified Code(s): R07.9 - Chest pain, unspecified Alcoholic gastritis Qualifiers: Chronicity: acute Gastritis bleeding: without bleeding Qualified Code(s): K29.20 - Alcoholic gastritis without bleeding UTI (urinary tract infection) Qualifiers: Urinary tract infection type: acute cystitis Hematuria presence: with hematuria Qualified Code(s): N30.01 - Acute cystitis with hematuria Disposition: TO HOME OR SELFCARE Is pt being admited?: No Does the pt Need Aspirin: No Condition: Stable Instructions: Chest Pain (ED), Gastritis (ED), Urinary Tract Infection in Men ( ED), Methamphetamine Abuse (ED) Additional Instructions: PLEASE STOP DOING DRUGS. RETURN FOR REHABILITATION IF YOU SO DESIRE. FOLLOW UP WITH YOUR DOCTOR IN TWO DAYS .RETURN TO ER IF SYMPTOMS INCREASE OR FOR ANY CONCERNS Prescriptions: Famotidine/Ca Carb/Mag Hydrox [Pepcid Complete Tablet Chew] 1 each PO DAILY #30 tab.chew Folic Acid [Folvite] 1 mg PO QDAY #30 tablet Nitrofurantoin [place]/M-Cryst [Macrobid CAP] 100 mg PO Q12HR #14 capsule Thiamine [Vitamin B-1] 100 mg PO QDAY #30 tablet Referrals: PRIMARY CARE, [Primary Care Provider] - 3-5 Days
[2017-06-16 04:06] LABS: Benzodiazepines Screen,Urine PRESUMPTIVE NEGATIVE; Cannabinoid Screen,Urine PRESUMPTIVE NEGATIVE; Cocaine Screen,Urine PRESUMPTIVE NEGATIVE; Methadone Screen,Urine PRESUMPTIVE NEGATIVE; Opiate Screen,Urine PRESUMPTIVE NEGATIVE
--- NOTE | 2017-06-16 04:10 | XRay Report ---
FINAL REPORT PROCEDURE: XR ABD SERIES W CXR 1V TECHNIQUE: Abdominal series complete, including supine and upright AP views of the abdomen and frontal chest. HISTORY: CHEST PAIN,N/V COMPARISON: No prior studies are available for comparison. FINDINGS: Heart: Normal. Mediastinum/Vessels: Normal. Lungs/Pleural space: Normal. Bowel gas pattern: Nonobstructive. Masses or calcifications: None. Bony structures: No acute osseous abnormality. Other: No free intraperitoneal air. IMPRESSION: No acute abnormality.
[2017-06-16 04:29] LABS: Amphetamine Screen,Urine PRESUMPTIVE POSITIVE
[2017-06-16] MEDS ORDERED: ROCEPHIN IM ONE (05:29)
[2017-06-16] MEDS ORDERED: XYLOCAINE 1% MPF 5 mL INFILTRATI ONE (05:29)
[2017-06-16 06:17] VITALS: BP 121/84
== END 2017-06-16 06:17 | disposition home or self-care (01) ==
LOC: ED 08:59
DX: R07.2 Precordial pain (principal); K29.20 Alcoholic gastritis without bleeding; N30.01 Acute cystitis with hematuria; F15.10 Other stimulant abuse, uncomplicated; F17.200 Nicotine dependence, unspecified, uncomplicated; Z88.8 Allergy status to other drugs, medicaments and biological substances; R11.2 Nausea with vomiting, unspecified
CPT/HCPCS: 36415; 74022; 80048; 80074; 80307; 81001; 83690; 84484; 85025; 93005; 93010; 96361; 96372; 96374; 99284; G0480; J0696; J2405; J7030; 80320

== ENCOUNTER 2020-09-01 03:50 | Emergency (ER) | payer SELFPAY ==
[2020-09-01 04:27] LABS: Hematocrit 43.8 % (35.5-45.6); Hemoglobin 14.9 gm/dl (11.8-15.2); Mean Corpuscular HGB Conc 34 % (32-34); Mean Corpuscular Volume 93 fl (84-94); Platelet Count 261 K/mm3 (140-440); Red Blood Count 4.72 M/mm3 (3.65-5.03); Red Cell Distribution Width 13.3 % (13.2-15.2)
[2020-09-01 04:36] LABS: Alanine Aminotransferase 17 units/L (7-56); Albumin 4.8 g/dL (3.9-5); BUN/Creatinine Ratio 10; Blood Urea Nitrogen 9 mg/dL (9-20); Calcium 10.1 mg/dL (8.4-10.2); Hemolysis Index 2
[2020-09-01 05:01] LABS: Bilirubin,Urine NEG (Negative); Blood,Urine LG (Negative); Color,Urine Yellow (Yellow); Mucus,Urine FEW /HPF; Protein,Urine <15 mg/dL mg/dL (Negative); Urobilinogen,Urine < 2.0 mg/dL (<2.0)
[2020-09-01 05:02] LABS: RBC,Urine > 182.0 /HPF (0.0-6.0)
[2020-09-01] MEDS ORDERED: KETOROLAC 30 MG/1 ML INJ IV ONE (05:06)
[2020-09-01] MEDS ORDERED: ONDANSETRON 4 MG/2 ML INJ IV ONE (05:06)
[2020-09-01] MEDS ORDERED: fentaNYL 100 MCG/2 ML INJ IV ONE (05:06)
--- NOTE | 2020-09-01 05:09 | Event Note ---
ED Screening Note Date of service: 09/01/20 Time: 05:08 ED Screening Note: 39-year-old male presenting with onset of right lower quadrant and suprapubic abdominal pain awakening him from sleep this morning. Patient denies nausea or vomiting. Patient denies gross hematuria. UA reveals microscopic hematuria. Will order CT abdomen pelvis This initial assessment/diagnostic orders/clinical plan/treatment(s) is/are subject to change based on patients health status, clinical progression and re- assessment by fellow clinical providers in the ED. Further treatment and workup at subsequent clinical providers discretion. Patient/guardian urged not to elope from the ED as their condition may be serious if not clinically assessed and managed. Initial orders include: CT abdomen pelvis Analgesia
[2020-09-01 05:18] LABS: Total Cells Counted 100
[2020-09-01 05:21] LABS: Platelet Estimate Consistent w Auto
--- NOTE | 2020-09-01 06:17 | Emergency Department Report ---
ED Abdominal Pain HPI - General Chief Complaint: Abdominal Pain Stated Complaint: ABDOMINAL PAIN Time Seen by Provider: 09/01/20 05:59 Source: patient Mode of arrival: Ambulatory Limitations: No Limitations - History of Present Illness Initial Comments: This is a 39-year-old male that does have a history of alcoholic pancreatitis in 2017 and hospitalization thereof. He states he has not been recently drinking. He is noted suprapubic and right lower quadrant abdominal pain with some radiation to his back over the last few days which has been dull and persistent. He has not noticed any dysuria or hematuria. According to my colleagues event note: 39-year-old male presenting with onset of right lower quadrant and suprapubic abdominal pain awakening him from sleep this morning. Patient denies nausea or vomiting. Patient denies gross hematuria. UA reveals microscopic hematuria. Will order CT abdomen pelvis This initial assessment/diagnostic orders/clinical plan/treatment(s) is/are subject to change based on patients health status, clinical progression and re- assessment by fellow clinical providers in the ED. Further treatment and workup at subsequent clinical providers discretion. Patient/guardian urged not to elope from the ED as their condition may be serious if not clinically assessed and managed. Initial orders include: CT abdomen pelvis Analgesia Previous hospitalization 2017: Hospitalization Reason for admission: intractable abdominal pain and nausea vomiting/acute pancreatitis Condition: Stable Hospital course: 35-year-old male patient with significant past medical history of chronic alcohol use recurrent episodes of alcohol-induced pancreatitis ongoing tobacco use was admitted through emergency room with abdominal pain intractable nausea vomiting of 2 days' duration Initial workup is consistent with acute pancreatitis admitted to the hospital Symptomatically managed with intravenous IV hydration and pain medications, started on nothing by mouth and gradually started clear liquids advanced to full liquids today Patient's multiple electrolyte imbalances were corrected Lipase levels significantly improved Today he is comfortable in bed with the minimal abdominal pain no nausea vomiting tolerating full liquid diet No evidence of alcohol withdrawal symptoms Patient was placed on CIWA protocol Vital signs are stable [id number] evaluation physical examination done by me prior to discharge is unremarkable Counseled the patient advised to quit alcohol use Advised to receive rehabilitation Advised to attend [facility] supportive group Smoking cessation counseling done I spent 10 minutes counseling the patient Final diagnosis; acute alcohol-induced pancreatitis Intractable nausea vomiting secondary to above Hypokalemia Hypomagnesemia Hypophosphatemia Metabolic acidosis all corrected Chronic alcohol use Ongoing tobacco use At the time of my encounter the patient is entirely comfortable. He states his pain is resolved. I reviewed his CT examination. I believe he may have a kidney stone in his right kidney and 1 already in his bladder. Awaiting radiologist interpretation. MD Complaint: abdominal pain -: days(s) Location: RLQ, suprapubic Radiation: back Migration to: no migration Severity: moderate, severe Severity scale (0 -10): 8 Quality: aching Consistency: constant Improves With: nothing, bowel movement Context: other (None of the above) Associated Symptoms: denies other symptoms, nausea, chills (No apparent fever) - Related Data Previous Rx's Medication Instructions Recorded Last Taken Type Nicotine [Habitrol] 14 mg TD QDAY #30 patch 10/23/16 Unknown Rx Pot Phosphate/Na Phosphate 1 each PO BID #10 powd.pack 10/23/16 Unknown Rx [Phos-Nak] oxyCODONE /ACETAMINOPHEN [Percocet 1 tab PO QHS PRN #10 tablet 10/23/16 Unknown Rx 5/325 mg] Famotidine/Ca Carb/Mag Hydrox 1 each PO DAILY #30 tab.chew 06/16/17 Unknown Rx [Pepcid Complete Tablet Chew] Folic Acid [Folvite] 1 mg PO QDAY #30 tablet 06/16/17 Unknown Rx Nitrofurantoin [place]/M-Cryst 100 mg PO Q12HR #14 capsule 06/16/17 Unknown Rx [Macrobid CAP] Thiamine [Vitamin B-1] 100 mg PO QDAY #30 tablet 06/16/17 Unknown Rx Nitrofurantoin [place]/M-Cryst 100 mg PO Q12HR #10 capsule 09/01/20 Unknown Rx [Macrobid CAP] Allergies Allergy/AdvReac Type Severity Reaction Status Date / Time lamotrigine [From Lamictal] AdvReac Rash Verified 03/25/15 07:32 ED Review of Systems ROS: Stated complaint: ABDOMINAL PAIN Other details as noted in HPI Constitutional: denies: chills, fever Eyes: denies: eye pain, vision change ENT: denies: ear pain, throat pain Respiratory: denies: cough, shortness of breath Cardiovascular: denies: chest pain, palpitations Endocrine: no symptoms reported Gastrointestinal: abdominal pain, nausea. denies: diarrhea Genitourinary: denies: urgency, dysuria Musculoskeletal: denies: back pain, joint swelling, arthralgia Skin: denies: rash, lesions Neurological: denies: headache, weakness, paresthesias Psychiatric: denies: anxiety, depression Hematological/Lymphatic: denies: easy bleeding, easy bruising ED Past Medical Hx - Past Medical History Previous Medical History?: Yes Hx Congestive Heart Failure: No Hx Diabetes: No Hx GERD: Yes Hx Psychiatric Treatment: Yes (BIPOLAR) Hx Asthma: No Hx COPD: No Hx HIV: No Additional medical history: Pancreatitis. Alcohol Gastritis - Surgical History Past Surgical History?: Yes Additional Surgical History: left forearm - Social History Smoking Status: Current Every Day Smoker Substance Use Type: None - Medications Home Medications: Home Medications Medication Instructions Recorded Confirmed Last Taken Type Nicotine [Habitrol] 14 mg TD QDAY #30 patch 10/23/16 Unknown Rx Pot Phosphate/Na Phosphate 1 each PO BID #10 powd.pack 10/23/16 Unknown Rx [Phos-Nak] oxyCODONE /ACETAMINOPHEN [Percocet 1 tab PO QHS PRN #10 tablet 10/23/16 Unknown Rx 5/325 mg] Famotidine/Ca Carb/Mag Hydrox 1 each PO DAILY #30 tab.chew 06/16/17 Unknown Rx [Pepcid Complete Tablet Chew] Folic Acid [Folvite] 1 mg PO QDAY #30 tablet 06/16/17 Unknown Rx Nitrofurantoin [place]/M-Cryst 100 mg PO Q12HR #14 capsule 06/16/17 Unknown Rx [Macrobid CAP] Thiamine [Vitamin B-1] 100 mg PO QDAY #30 tablet 06/16/17 Unknown Rx Nitrofurantoin [place]/M-Cryst 100 mg PO Q12HR #10 capsule 09/01/20 Unknown Rx [Macrobid CAP] ED Physical Exam - General Limitations: No Limitations General appearance: alert, in no apparent distress - Head Head exam: Present: atraumatic, normocephalic - Eye Eye exam: Present: normal appearance. Absent: scleral icterus - ENT ENT exam: Present: mucous membranes moist - Neck Neck exam: Present: normal inspection - Respiratory Respiratory exam: Present: normal lung sounds bilaterally. Absent: respiratory distress - Cardiovascular Cardiovascular Exam: Present: regular rate, normal rhythm. Absent: systolic mu rmur, diastolic murmur, rubs, gallop - GI/Abdominal GI/Abdominal exam: Present: soft, normal bowel sounds. Absent: distended, tenderness, guarding, rebound, rigid, organomegaly, mass, bruit, pulsatile mass, hernia - Rectal Rectal exam: Present: deferred - Extremities Exam Extremities exam: Present: normal inspection - Back Exam Back exam: Present: normal inspection - Neurological Exam Neurological exam: Present: alert, oriented X3, CN II-XII intact. Absent: motor sensory deficit - Psychiatric Psychiatric exam: Present: normal affect, normal mood - Skin Skin exam: Present: warm, dry, intact, normal color. Absent: rash ED Course Vital Signs 09/01/20 09/01/20 09/01/20 03:57 04:49 05:01 Temperature 97.7 F Pulse Rate 65 55 L Respiratory 16 16 14 Rate Blood Pressure 116/76 Blood Pressure 128/82 [Right] O2 Sat by Pulse 100 99 Oximetry 09/01/20 09/01/20 09/01/20 05:15 05:31 05:45 Temperature Pulse Rate 55 L 56 L 53 L Respiratory 12 15 13 Rate Blood Pressure 116/76 129/81 129/81 Blood Pressure [Right] O2 Sat by Pulse 100 100 99 Oximetry 09/01/20 09/01/20 09/01/20 06:00 06:15 06:31 Temperature Pulse Rate 52 L 54 L 56 L Respiratory 11 L 12 9 L Rate Blood Pressure 129/81 Blood Pressure [Right] O2 Sat by Pulse 99 99 100 Oximetry 09/01/20 07:12 Temperature Pulse Rate 54 L Respiratory 18 Rate Blood Pressure Blood Pressure [Right] O2 Sat by Pulse 98 Oximetry - Reevaluation(s) Reevaluation #1: Patient was resting comfortably. I let him sleep for some time. He was awoken. He remained asymptomatic. He was ready for discharge. He was counseled regarding urology follow-up. I will place him on some Macrobid pending cultures. His urine really was not compelling for infection but did have a few white cells. 09/01/20 07:59 Reevaluation #2: Radiologist agreed with my preliminary interpretation. There was some hydro on the right also indicative of passed stone. 09/01/20 08:01 ED Medical Decision Making - Lab Data Result diagrams: 09/01/20 04:00 09/01/20 04:00 Laboratory Results - last 24 hr 09/01/20 09/01/20 09/01/20 04:00 04:00 Unknown WBC 8.6 RBC 4.72 Hgb 14.9 Hct 43.8 MCV 93 MCH 32 MCHC 34 RDW 13.3 Plt Count 261 Lymph % (Auto) Payment Analyst Lymph # (Auto) Payment Analyst Add Manual Diff Complete Total Counted 100 Seg Neutrophils % Payment Analyst Seg Neuts % (Manual) 30.0 L Lymphocytes % (Manual) 58.0 H Monocytes % (Manual) 11.0 H Eosinophils % (Manual) 1.0 Nucleated RBC % Not Reportable Seg Neutrophils # Man 2.6 Band Neutrophils # 0.0 Lymphocytes # (Manual) 5.0 Abs React Lymphs (Man) 0.0 Monocytes # (Manual) 0.9 H Eosinophils # (Manual) 0.1 Basophils # (Manual) 0.0 Metamyelocytes # 0.0 Myelocytes # 0.0 Promyelocytes # 0.0 Blast Cells # 0.0 WBC Morphology Not Reportable Hypersegmented Neuts Not Reportable Hyposegmented Neuts Not Reportable Hypogranular Neuts Not Reportable Smudge Cells Not Reportable Toxic Granulation Not Reportable Toxic Vacuolation Not Reportable Dohle Bodies Not Reportable Pelger-Huet Anomaly Not Reportable Jas Rods Not Reportable Platelet Estimate Consistent w auto Clumped Platelets Not Reportable Plt Clumps, EDTA Not Reportable Large Platelets Not Reportable Giant Platelets Not Reportable Platelet Satelliting Not Reportable Plt Morphology Comment Not Reportable RBC Morphology Not Reportable Dimorphic RBCs Not Reportable Polychromasia Not Reportable Hypochromasia Not Reportable Poikilocytosis Not Reportable Anisocytosis Not Reportable Microcytosis Not Reportable Macrocytosis Not Reportable Spherocytes Not Reportable Pappenheimer Bodies Not Reportable Sickle Cells Not Reportable Target Cells Not Reportable Tear Drop Cells Not Reportable Ovalocytes Not Reportable Helmet Cells Not Reportable [place] Bodies Not Reportable [place] Rings Not Reportable [place] Cells Not Reportable Bite Cells Not Reportable Crenated Cell Not Reportable Elliptocytes Not Reportable Acanthocytes (Spur) Not Reportable Rouleaux Not Reportable Hemoglobin C Crystals Not Reportable Schistocytes Not Reportable Malaria parasites Not Reportable Dylan Bodies Not Reportable Hem Pathologist Commnt No Sodium 139 Potassium 3.9 Chloride 99.5 Carbon Dioxide 27 Anion Gap 16 BUN 9 Creatinine 0.9 Estimated GFR > 60 BUN/Creatinine Ratio 10 Glucose 118 H Calcium 10.1 Total Bilirubin 0.40 AST 20 ALT 17 Alkaline Phosphatase 46 Total Protein 7.3 Albumin 4.8 Albumin/Globulin Ratio 1.9 Lipase 33 Urine Color Yellow Urine Turbidity Cloudy Urine pH 6.0 Ur Specific [place] 1.015 Urine Protein <15 mg/dl Urine Glucose (UA) Neg Urine Ketones Neg Urine Blood Lg Urine Nitrite Neg Urine Bilirubin Neg Urine Urobilinogen < 2.0 Ur Leukocyte Esterase Neg Urine WBC (Auto) 7.0 H Urine RBC (Auto) > 182.0 Urine Mucus Few - Radiology Data CT ABDOMEN and PELVIS: Lung Bases: No significant abnormality. Liver: No significant abnormality. Biliary: No significant abnormality. Spleen: No significant abnormality. Pancreas: No significant abnormality. Adrenals: No significant abnormality. Kidneys: Moderate right hydroureteronephrosis. There is a 2 mm stone seen layering dependently in the right aspect of bladder. Nonobstructing 2 mm bilateral lower pole stones. Subcentimeter hypoattenuating lesions in the left kidney are likely cysts. Lymphatics: No lymphadenopathy. Vasculature: No significant abnormality. Bowel: No significant abnormality. Pelvis: No significant abnormality. Osseous Structures: No aggressive osseous lesion. Additional Findings: None IMPRESSION: 1. There is a 2 mm stone seen layering in the bladder with associated moderate right hydroureteronephrosis. Findings are consistent with a recently passed stone into the bladder. 2. A couple of other bilateral nonobstructing small stones. Critical care attestation.: If time is entered above; I have spent that time in minutes in the direct care of this critically ill patient, excluding procedure time. ED Disposition Clinical Impression: Renal colic on right side, Renal lithiasis Disposition: TO HOME OR SELFCARE Is pt being admited?: No Does the pt Need Aspirin: No Condition: Stable Additional Instructions: Rx as directed. Acute recurrent pain is not anticipated. However, you do have another kidney stone in the right kidney. Follow-up with the urologist regarding this. I will place you on an antibiotic for a few days pending the results of your urine culture. Prescriptions: Nitrofurantoin [place]/M-Cryst [Macrobid CAP] 100 mg PO Q12HR #10 capsule Referrals: PRIMARY CAREMD [Primary Care Provider] - 3-5 Days [facility] [Provider Group] - 2-3 Days Time of Disposition: 08:03
--- NOTE | 2020-09-01 06:31 | Cat Scan Report ---
CT abdomen pelvis wo con INDICATION: R.L.Q. Suprapubic abdominal pain, microscopic hematuria. COMPARISON: None TECHNIQUE: Abdominal and pelvic CT exam performed. All CT scans at this location are performed using CT dose reduction for ALARA by means of automated exposure control. FINDINGS: CT ABDOMEN and PELVIS: Lung Bases: No significant abnormality. Liver: No significant abnormality. Biliary: No significant abnormality. Spleen: No significant abnormality. Pancreas: No significant abnormality. Adrenals: No significant abnormality. Kidneys: Moderate right hydroureteronephrosis. There is a 2 mm stone seen layering dependently in the right aspect of bladder. Nonobstructing 2 mm bilateral lower pole stones. Subcentimeter hypoattenuat ing lesions in the left kidney are likely cysts. Lymphatics: No lymphadenopathy. Vasculature: No significant abnormality. Bowel: No significant abnormality. Pelvis: No significant abnormality. Osseous Structures: No aggressive osseous lesion. Additional Findings: None IMPRESSION: 1. There is a 2 mm stone seen layering in the bladder with associated moderate right hydroureteronep hrosis. Findings are consistent with a recently passed stone into the bladder. 2. A couple of other bilateral nonobstructing small stones. Signer Name: Cheikh Tello MD Signed: 09/01/2020 6:26 AM Workstation Name: [id number]
[2020-09-01 08:16] VITALS: BP 107/62
== END 2020-09-01 08:17 | disposition home or self-care (01) ==
LOC: ED 03:50
DX: N23 Unspecified renal colic (principal); N20.0 Calculus of kidney; F31.9 Bipolar disorder, unspecified; K21.9 Gastro-esophageal reflux disease without esophagitis; F17.200 Nicotine dependence, unspecified, uncomplicated; Z88.8 Allergy status to other drugs, medicaments and biological substances; Z79.899 Other long term (current) drug therapy; Z98.890 Other specified postprocedural states
CPT/HCPCS: 36415; 74176; 80053; 81001; 83690; 85007; 85025; 87086; 96374; 96375; 99284; J1885; J2405; J3010

== ENCOUNTER 2021-08-17 10:00 | Emergency (ER) | payer SELFPAY ==
[2021-08-17] MEDS ORDERED: MORPHINE 4 MG/1 ML INJ IV ONE (10:15)
[2021-08-17] MEDS ORDERED: ONDANSETRON 4 MG/2 ML INJ IV ONE ×2 (10:15→12:01)
[2021-08-17] MEDS ORDERED: SODIUM CHLORIDE 0.9% 1000 ML 1,000 ML IV ONE ×2 (10:15→11:36)
[2021-08-17 11:10] LABS: Basophils % (Auto) 0.5 % (0.0-1.8); Eosinophils # (Auto) 0.1 K/mm3 (0.0-0.4); Eosinophils % (Auto) 1.1 % (0.0-4.3); Hematocrit 41.9 % (35.5-45.6); Hemoglobin 14.6 gm/dl (11.8-15.2); Lymphocytes # (Auto) 2.6 K/mm3 (1.2-5.4); Lymphocytes % (Auto) 28.7 % (13.4-35.0); Mean Corpuscular HGB Conc 35 % (32-34); Mean Corpuscular Volume 92 fl (84-94); Monocytes # (Auto) 0.5 K/mm3 (0.0-0.8); Monocytes % (Auto) 5.8 % (0.0-7.3); Platelet Count 228 K/mm3 (140-440); Red Blood Count 4.56 M/mm3 (3.65-5.03); Red Cell Distribution Width 13.3 % (13.2-15.2)
[2021-08-17 11:41] LABS: Alanine Aminotransferase 17 units/L (7-56); Albumin 4.8 g/dL (3.9-5); BUN/Creatinine Ratio 13; Blood Urea Nitrogen 10 mg/dL (9-20); Calcium 10.2 mg/dL (8.4-10.2); Hemolysis Index 11
[2021-08-17 11:55] LABS: Mucus,Urine 2+ /HPF
[2021-08-17 11:56] LABS: RBC,Urine > 182.0 /HPF (0.0-6.0)
[2021-08-17] MEDS ORDERED: MORPHINE 2 MG/1 ML INJ IV ONE (12:01)
--- NOTE | 2021-08-17 12:02 | Emergency Department Report ---
<JUANCARLOS AGOSTO A - Last Filed: 08/17/21 13:00> ED Abdominal Pain HPI - General Chief Complaint: Abdominal Pain Stated Complaint: LOW RT ABD PAIN X 1 DAY PUI?: No Time Seen by Provider: 08/17/21 10:11 Source: patient Mode of arrival: Ambulatory Limitations: No Limitations - History of Present Illness Initial Comments: 40 YO COMES TO ER WITH RLQ AND R FLANK PAIN X 1 DAY PALLOR IN TRIAGE DENIES N/V/D DENIES FEVER OR CHILLS ENDORSES BACK PAIN REPORTS URGE TO HAVE A STOOL NO HX OF THE SAME PAIN MD Complaint: flank pain -: Sudden, days(s) Location: RLQ Radiation: R flank Migration to: no migration Severity scale (0 -10): 8 Quality: cramping Consistency: constant Improves With: nothing Worsens With: nothing Associated Symptoms: other (UREG TO VOID AND DARK URINE ). denies: nausea, vomiting, diarrhea, fever, chills, constipation, dysuria, hematemesis, hematochezia, melena, hematuria, anorexia, syncope - Related Data Previous Rx's Medication Instructions Recorded Last Taken Type HYDROcodone/APAP 5-325 [[place] 1 - 2 each PO Q6HR PRN #14 tablet 08/17/21 Unknown Rx 5/325] Ketorolac [Toradol] 10 mg PO Q6H PRN #16 08/17/21 Unknown Rx Ondansetron [Zofran ODT TAB] 8 mg PO Q8HR #20 tab.rapdis 08/17/21 Unknown Rx Allergies Allergy/AdvReac Type Severity Reaction Status Date / Time lamotrigine [From Lamictal] AdvReac Rash Verified 03/25/15 07:32 ED Review of Systems Comment: All other systems reviewed and negative ED Past Medical Hx - Past Medical History Previous Medical History?: Yes Hx Congestive Heart Failure: No Hx Diabetes: No Hx GERD: Yes Hx Psychiatric Treatment: Yes (BIPOLAR) Hx Asthma: No Hx COPD: No Hx HIV: No Additional medical history: Pancreatitis. Alcohol Gastritis - Surgical History Past Surgical History?: Yes Additional Surgical History: left forearm - Family History Family history: no significant - Social History Smoking Status: Current Every Day Smoker Substance Use Type: Alcohol - Medications Home Medications: Home Medications Medication Instructions Recorded Confirmed Last Taken Type HYDROcodone/APAP 5-325 [[place] 1 - 2 each PO Q6HR PRN #14 tablet 08/17/21 Unknown Rx 5/325] Ketorolac [Toradol] 10 mg PO Q6H PRN #16 08/17/21 Unknown Rx Ondansetron [Zofran ODT TAB] 8 mg PO Q8HR #20 tab.rapdis 08/17/21 Unknown Rx ED Physical Exam - General Limitations: No Limitations General appearance: alert, in no apparent distress - Head Head exam: Present: atraumatic, normocephalic - Eye Eye exam: Present: normal appearance - ENT ENT exam: Present: mucous membranes moist - Neck Neck exam: Present: normal inspection - Respiratory Respiratory exam: Present: normal lung sounds bilaterally. Absent: respiratory distress - Cardiovascular Cardiovascular Exam: Present: regular rate, normal rhythm. Absent: systolic murmur, diastolic murmur, rubs, gallop - GI/Abdominal GI/Abdominal exam: Present: soft, normal bowel sounds - Rectal Rectal exam: Present: deferred - Extremities Exam Extremities exam: Present: normal inspection - Back Exam Back exam: Present: normal inspection - Neurological Exam Neurological exam: Present: alert, oriented X3 - Psychiatric Psychiatric exam: Present: normal affect, normal mood - Skin Skin exam: Present: warm, dry, intact, normal color. Absent: rash ED Course - Reevaluation(s) Reevaluation #1: 08/17/21 12:58 RN IS HAVING PT MOVED TO MAIN STAFFED WITH DR WEINBERG WHO WILL ASSUME CARE AND DISPO PT ED Medical Decision Making - Lab Data Result diagrams: 08/17/21 10:43 08/17/21 10:43 - Radiology Data Radiology results: report reviewed, image reviewed see report - Medical Decision Making Vital Signs 08/17/21 10:06 Temperature 97.7 F Pulse Rate 51 L Respiratory 16 Rate Blood Pressure 95/53 [Left] O2 Sat by Pulse 100 Oximetry Labs 08/17/21 08/17/21 08/17/21 10:43 10:43 10:43 WBC 9.0 RBC 4.56 Hgb 14.6 Hct 41.9 MCV 92 MCH 32 MCHC 35 H RDW 13.3 Plt Count 228 Lymph % (Auto) 28.7 [place] % (Auto) 5.8 Eos % (Auto) 1.1 Baso % (Auto) 0.5 Lymph # (Auto) 2.6 [place] # (Auto) 0.5 Eos # (Auto) 0.1 Baso # (Auto) 0.0 Seg Neutrophils % 63.9 Seg Neutrophils # 5.7 Sodium 142 Potassium 3.9 Chloride 103.3 Carbon Dioxide 22 Anion Gap 21 BUN 10 Creatinine 0.8 Estimated GFR > 60 BUN/Creatinine Ratio 13 Glucose 134 H Lactic Acid 2.40 H* Calcium 10.2 Total Bilirubin 0.90 AST 16 ALT 17 Alkaline Phosphatase 47 Total Protein 7.3 Albumin 4.8 Albumin/Globulin Ratio 1.9 Lipase 19 Urine Color Urine Turbidity Urine pH Ur Specific [place] Urine Protein Urine Glucose (UA) Urine Ketones Urine Blood Urine Nitrite Ur Reducing Substances Urine Bilirubin Urine Ictotest Urine Urobilinogen Ur Leukocyte Esterase Urine WBC (Auto) Urine RBC (Auto) Urine Mucus 08/17/21 11:16 WBC RBC Hgb Hct MCV MCH MCHC RDW Plt Count Lymph % (Auto) [place] % (Auto) Eos % (Auto) Baso % (Auto) Lymph # (Auto) [place] # (Auto) Eos # (Auto) Baso # (Auto) Seg Neutrophils % Seg Neutrophils # Sodium Potassium Chloride Carbon Dioxide Anion Gap BUN Creatinine Estimated GFR BUN/Creatinine Ratio Glucose Lactic Acid Calcium Total Bilirubin AST ALT Alkaline Phosphatase Total Protein Albumin Albumin/Globulin Ratio Lipase Urine Color Yellow Urine Turbidity Hazy Urine pH 6.0 Ur Specific [place] 1.035 H Urine Protein 30 mg/dl Urine Glucose (UA) Negative Urine Ketones 25 Urine Blood 4+ Urine Nitrite Negative Ur Reducing Substances Not Reportable Urine Bilirubin Negative Urine Ictotest Not Reportable Urine Urobilinogen < 2.0 Ur Leukocyte Esterase Negative Urine WBC (Auto) 5.0 Urine RBC (Auto) > 182.0 Urine Mucus 2+ LABS NOTED UA NOTED CT noted LACTIC ACID NOTED- ATTENDING AWARE IN TRIAGE: MORPHINE X 2 ZOFRAN X 2 NS X 2 L ROCEPHIN 1 GM IV 1243 REPEAT LACTATE ORDERED PER TERRELL- PT GOING TO MAIN ED FOR DISPO - Differential Diagnosis ro appendicitis/k stone ED Disposition Clinical Impression: Renal colic on right side Disposition: 01 HOME / SELF CARE / HOMELESS Does the pt Need Aspirin: No Condition: Stable Instructions: Renal Colic, [id number], Kidney Stones Additional Instructions: Return to the emergency department should you develop worsening symptoms, inability to tolerate food or liquids, high fever or any other concerns Prescriptions: HYDROcodone/APAP 5-325 [[place] 5/325] 1 - 2 each PO Q6HR PRN #14 tablet PRN Reason: Pain Ketorolac [Toradol] 10 mg PO Q6H PRN #16 PRN Reason: Pain Ondansetron [Zofran ODT TAB] 8 mg PO Q8HR #20 tab.rapdis Referrals: LINA LEHMAN MD [Primary Care Provider] - 3-5 Days MAJO MEDINA MD [Staff Physician] - 3-5 Days (Dr. Medina is a urologist. Please follow-up with him for further evaluation of your kidney stone) Time of Disposition: 12:54 <GENIA WEINBERG - Last Filed: 08/17/21 15:47> ED Review of Systems ROS: Stated complaint: LOW RT ABD PAIN X 1 DAY Other details as noted in HPI ED Course Vital Signs 08/17/21 08/17/21 08/17/21 10:06 14:28 15:29 Temperature 97.7 F Pulse Rate 51 L 66 Respiratory 16 16 16 Rate Blood Pressure 95/53 158/85 [Left] O2 Sat by Pulse 100 100 Oximetry 08/17/21 08/17/21 15:30 15:37 Temperature Pulse Rate 50 L Respiratory 16 12 Rate Blood Pressure 147/79 [Left] O2 Sat by Pulse 96 Oximetry - Reevaluation(s) Reevaluation #2: 08/17/21 15:44 Patient resting comfortably, states pain controlled after analgesia. ED Medical Decision Making - Lab Data Result diagrams: 08/17/21 10:43 08/17/21 10:43 Laboratory Tests 08/17/21 08/17/21 08/17/21 10:43 10:43 10:43 WBC 9.0 RBC 4.56 Hgb 14.6 Hct 41.9 MCV 92 MCH 32 MCHC 35 H RDW 13.3 Plt Count 228 Lymph % (Auto) 28.7 [place] % (Auto) 5.8 Eos % (Auto) 1.1 Baso % (Auto) 0.5 Lymph # (Auto) 2.6 [place] # (Auto) 0.5 Eos # (Auto) 0.1 Baso # (Auto) 0.0 Seg Neutrophils % 63.9 Seg Neutrophils # 5.7 Sodium 142 Potassium 3.9 Chloride 103.3 Carbon Dioxide 22 Anion Gap 21 BUN 10 Creatinine 0.8 Estimated GFR > 60 BUN/Creatinine Ratio 13 Glucose 134 H Lactic Acid 2.40 H* Calcium 10.2 Total Bilirubin 0.90 AST 16 ALT 17 Alkaline Phosphatase 47 Total Protein 7.3 Albumin 4.8 Albumin/Globulin Ratio 1.9 Lipase 19 Urine Color Urine Turbidity Urine pH Ur Specific [place] Urine Protein Urine Glucose (UA) Urine Ketones Urine Blood Urine Nitrite Ur Reducing Substances Urine Bilirubin Urine Ictotest Urine Urobilinogen Ur Leukocyte Esterase Urine WBC (Auto) Urine RBC (Auto) Urine Mucus 08/17/21 08/17/21 11:16 12:53 WBC RBC Hgb Hct MCV MCH MCHC RDW Plt Count Lymph % (Auto) [place] % (Auto) Eos % (Auto) Baso % (Auto) Lymph # (Auto) [place] # (Auto) Eos # (Auto) Baso # (Auto) Seg Neutrophils % Seg Neutrophils # Sodium Potassium Chloride Carbon Dioxide Anion Gap BUN Creatinine Estimated GFR BUN/Creatinine Ratio Glucose Lactic Acid 1.50 Calcium Total Bilirubin AST ALT Alkaline Phosphatase Total Protein Albumin Albumin/Globulin Ratio Lipase Urine Color Yellow Urine Turbidity Hazy Urine pH 6.0 Ur Specific [place] 1.035 H Urine Protein 30 mg/dl Urine Glucose (UA) Negative Urine Ketones 25 Urine Blood 4+ Urine Nitrite Negative Ur Reducing Substances Not Reportable Urine Bilirubin Negative Urine Ictotest Not Reportable Urine Urobilinogen < 2.0 Ur Leukocyte Esterase Negative Urine WBC (Auto) 5.0 Urine RBC (Auto) > 182.0 Urine Mucus 2+ Critical care attestation.: If time is entered above; I have spent that time in minutes in the direct care of this critically ill patient, excluding procedure time. ED Disposition Is pt being admited?: No Does the pt Need Aspirin: No Time of Disposition: 15:46
[2021-08-17 12:13] LABS: Bilirubin,Urine Negative (Negative); Blood,Urine 4+ (Negative); Color,Urine Yellow (Yellow); Urobilinogen,Urine < 2.0 mg/dL (<2.0)
[2021-08-17] MEDS ORDERED: cefTRIAXone/NS 1 GM/50 ML 1 GM/50 ML BAG IV ONE (12:43)
--- NOTE | 2021-08-17 12:45 | Cat Scan Report ---
CT ABDOMEN AND PELVIS WITHOUT CONTRAST INDICATION / CLINICAL INFORMATION: abd pain. TECHNIQUE: Axial CT images were obtained through the abdomen and pelvis without IV contrast. All CT scans at this location are performed using CT dose reduction for ALARA by means of automated exposure control. COMPARISON: 09/01/2020 FINDINGS: LOWER CHEST: No significant abnormality LIVER: No significant abnormality GALLBLADDER/BILIARY TREE: No significant abnormality PANCREAS: No significant abnormality SPLEEN: No significant abnormality ADRENALS: No significant abnormality RIGHT KIDNEY: Right asymmetric perinephric and periureteral stranding with mild right hydroureteronep hrosis. There is a 4 mm stone at the right UVJ or just inside the urinary bladder. LEFT KIDNEY: 3 mm nonobstructive stone in the midpole and punctate stone in the lower pole. No urolit hiasis or hydronephrosis. Small exophytic hypodensities likely reflect cysts, though are too small to further characterize. URINARY BLADDER: No significant abnormality REPRODUCTIVE ORGANS: No significant abnormality STOMACH / BOWEL: Small bowel is normal in caliber. The colon is unremarkable. The appendix is normal in caliber. LYMPH NODES: No significant adenopathy. VASCULATURE: No significant abnormality. OTHER: No free air, free fluid, or focal fluid collection is identified. SKELETAL SYSTEM: No acute osseous findings. IMPRESSION: 1. Mild right hydronephrosis with asymmetric right perinephric/periureteral stranding related to 4 mm stone at the right UVJ or just inside the urinary bladder. 2. Additional tiny nonobstructive left renal stones. No ureteral calculi or hydronephrosis on the lef t. Signer Name: Eben García MD Signed: 08/17/2021 12:40 PM Workstation Name: [employer]
[2021-08-17] MEDS ORDERED: HYDROmorphone 1 MG/1 ML INJ IV ONE (14:25)
[2021-08-17] MEDS ORDERED: KETOROLAC 30 MG/1 ML INJ IV ONE (14:26)
[2021-08-17 15:37] VITALS: BP 147/79
== END 2021-08-17 16:02 | disposition home or self-care (01) ==
LOC: ED 10:00
DX: N23 Unspecified renal colic (principal); F17.200 Nicotine dependence, unspecified, uncomplicated; F10.20 Alcohol dependence, uncomplicated
CPT/HCPCS: 36415; 74176; 80053; 81001; 82140; 83690; 85025; 87040; 96361; 96365; 96375; 96376; 99284; J0696; J1170; J1885; J2270; J2405; J7030; Q0162